=== PATIENT | female | born 1940 | race Caucasian/White ===

== ENCOUNTER 2019-02-13 20:06 | Inpatient (IN) | payer MEDICARE, BC ==
[~2019-02-13] VITALS: Ht 152.4 cm; Wt 43.0 kg
[2019-02-13] MEDS ORDERED: SOD CHLORIDE 0.9% 500 ML IV STA (22:32)
[2019-02-14] VITALS (8 sets, daily range): BP systolic 121–181; BP diastolic 58–95; PULSE 97–118; RESP 17–20; Ht 152.4 cm; Wt 43.0 kg
--- NOTE | 2019-02-14 00:57 | ERD ---
ER Documentation Chief Complaint Chief Complaint weakness, poor appetite, anxiety. lives alone at home. >20lbs weight loss HPI This is a very pleasant 78-year-old female comes in with complaints of generalized weakness, poor appetite and anxiety. Apparently over the past few days she has not been eating or drinking well. Daughter is at the bedside stated the patient has been generally weak. Patient himself denies fevers chills nausea vomiting or any recent travel. No sick contacts. Denies suicidal homicidal ideation. Denies auditory or visual hallucinations. ROS All systems reviewed and are negative except as per history of present illness. Allergies Allergies: Coded Allergies: No Known Drug Allergy (Verified Allergy, Unknown, 02/13/19) PMhx/Soc Medical and Surgical Hx: pt denies Surgical Hx Hx Psychiatric Problems: Yes (ANXIETY) Hx Miscellaneous Medical Probl: Yes (DYSPHAGIA ) Hx Alcohol Use: No Hx Substance Use: No Hx Tobacco Use: No Smoking Status: Never smoker Physical Exam Vitals Vital Signs Date Temp Pulse Resp B/P (MAP) Pulse Ox O2 O2 Flow FiO2 Time Delivery Rate 02/13/19 92 23 153/86 96 Room Air 23:56 (108) 02/13/19 98.4 104 20 146/78 95 20:09 (100) Physical Exam Const: No acute distress Head: Atraumatic Eyes: Normal Conjunctiva ENT: Normal External Ears, Nose and Mouth. Neck: Full range of motion. No meningismus. Resp: Clear to auscultation bilaterally Cardio: Regular rate and rhythm, no murmurs Abd: Soft, non tender, non distended. Normal bowel sounds Skin: No petechiae or rashes Back: No midline or flank tenderness Ext: No cyanosis, or edema Neur: Awake and alert Psych: Normal Mood and Affect Result Diagram: 02/13/19211902/13/192119 Results 24 hrs Laboratory Tests Test 02/13/19 21:20 White Blood Count 6.6 10^3/ul Red Blood Count 4.73 10^6/ul Hemoglobin 15.5 g/dl Hematocrit 45.8 % Mean Corpuscular Volume 96.8 fl Mean Corpuscular Hemoglobin 32.8 pg Mean Corpuscular Hemoglobin Concent 33.8 g/dl Red Cell Distribution Width 14.0 % Platelet Count 177 10^3/UL Mean Platelet Volume 10.3 fl Immature Granulocytes % 0.300 % Neutrophils % 78.2 % Lymphocytes % 14.5 % Monocytes % 6.5 % Eosinophils % 0.2 % Basophils % 0.3 % Nucleated Red Blood Cells % 0.0 /100WBC Immature Granulocytes # 0.020 10^3/ul Neutrophils # 5.2 10^3/ul Lymphocytes # 1.0 10^3/ul Monocytes # 0.4 10^3/ul Eosinophils # 0.0 10^3/ul Basophils # 0.0 10^3/ul Nucleated Red Blood Cells # 0.0 10^3/ul Sodium Level 149 mmol/L Potassium Level 3.5 mmol/L Chloride Level 104 mmol/L Carbon Dioxide Level 35 mmol/L Anion Gap 10 Blood Urea Nitrogen 28 mg/dl Creatinine 0.32 mg/dl Est Glomerular Filtrat Rate mL/min mL/min Glucose Level 109 mg/dl Calcium Level 10.6 mg/dl Total Bilirubin 1.2 mg/dl Direct Bilirubin 0.00 mg/dl Indirect Bilirubin 1.2 mg/dl Aspartate Amino Transf (AST/SGOT) 51 IU/L Alanine Aminotransferase (ALT/SGPT) 46 IU/L Alkaline Phosphatase 56 IU/L Troponin I 0.015 ng/ml Total Protein 7.9 g/dl Albumin 4.4 g/dl Globulin 3.50 g/dl Albumin/Globulin Ratio 1.25 Lipase 108 U/L Current Medications Medications Dose Sig/Maribell Start Time Status Last (Trade) Ordered Route PRN Stop Time Admin Dose Reason Admin Sodium 500 ml @ Q1H STAT 02/13/19 DC 02/13/19 Chloride 500 mls/hr IV 22:32 02/13/19 22:41 23:31 Procedures/MDM Emergency department course: Patient seen and evaluated by triage nurse. Placed on continuous cardiac monitoring. Had blood work done. Was given a normal saline fluid bolus. Diagnostic data: EKG: Rate/Rhythm: [Normal Sinus Rhythm] QRS, ST, T-waves: [No changes consistent w/ acute ischemia], normal axis, normal intervals, upgoing T waves Impression: [No evidence of ischemia or arrhythmia] Chest X-ray 1V Interpreted by me: Soft Tissue: No acute abnormalities Bones: No acute abnormalities Mediastinum/Cardiac Silhouette/Lungs: [No acute abnormalities] Medical decision makin-year female generalized weakness, obvious evidence of acute dehydration both on physical exam and laboratory data, and general peter lure to thrive. Patient will be admitted to the hospitalist for further evaluation and management fluid hydration. Hospitalist made aware at 11:30 PM Departure Diagnosis: Primary Impression: Acute dehydration Additional Impressions: Acute hypernatremia Failure to thrive Failure to thrive age range: in adult Qualified Codes: R62.7 - Adult failure to thrive Condition: Serious LUIS MORENO Feb 14, 2019 00:57
[2019-02-14] MEDS ORDERED: NACL 0.9% 3 ML SYG IV SCH (01:00)
[2019-02-14] MEDS ORDERED: ONDANSETRON 4 MG INJ IV PRN (01:00)
[2019-02-14] MEDS ORDERED: HYDR-4011 PO (01:01)
[2019-02-14] MEDS ORDERED: MET25 PO (01:01)
[2019-02-14] MEDS ORDERED: HYDR-3029 PO (01:01)
[2019-02-14] MEDS ORDERED: ALPR0.254 PO (01:01)
[2019-02-14] MEDS: DEXTROSE 5%-0.45% NACL 1,000 ML IV SCH ×2 (03:38→10:53)
[2019-02-14] MEDS ORDERED: LORAZEPAM 2 MG INJ IV ONE (05:00)
--- NOTE | 2019-02-14 08:32 | HP ---
Date/Time of Note Date/Time of Note DATE: 02/14/19 TIME: 08:29 Assessment/Plan VTE Prophylaxis Pharmacological prophylaxis: heparin Lines/Catheters IV Catheter Type (from Nrs): Saline Lock Assessment/Plan Assessment/Plan 1. Dysphagia -Reportedly, she is supposed to have a GI later on this week -Speech/swallow evaluation -Inpatient GI consult 2. Generalized weakness: Likely secondary to poor nutrition 3. Anxiety: We will provide meds as needed 4. Failure to thrive, secondary to dysphagia. See #1 -Dietary consult -Speech/swallow eval Result Diagram: 02/14/19 0455 02/14/19 0455 Results 24hrs Laboratory Tests Test 02/13/19 21:20 02/14/19 04:55 White Blood Count 6.6 5.8 Red Blood Count 4.73 4.44 Hemoglobin 15.5 14.7 Hematocrit 45.8 43.3 Mean Corpuscular Volume 96.8 97.5 Mean Corpuscular Hemoglobin 32.8 33.1 H Mean Corpuscular Hemoglobin Concent 33.8 33.9 Red Cell Distribution Width 14.0 13.8 Platelet Count 177 154 Mean Platelet Volume 10.3 10.9 H Immature Granulocytes % 0.300 0.300 Neutrophils % 78.2 H 77.8 H Lymphocytes % 14.5 L 15.7 Monocytes % 6.5 5.9 Eosinophils % 0.2 0.0 Basophils % 0.3 0.3 Nucleated Red Blood Cells % 0.0 0.0 Immature Granulocytes # 0.020 0.020 Neutrophils # 5.2 4.5 Lymphocytes # 1.0 0.9 Monocytes # 0.4 0.3 Eosinophils # 0.0 0.0 Basophils # 0.0 0.0 Nucleated Red Blood Cells # 0.0 0.0 Sodium Level 149 H 148 H Potassium Level 3.5 3.4 L Chloride Level 104 107 Carbon Dioxide Level 35 H 34 H Anion Gap 10 7 Blood Urea Nitrogen 28 H 26 H Creatinine 0.32 L 0.28 L Est Glomerular Filtrat Rate mL/min Glucose Level 109 135 Calcium Level 10.6 H 9.9 Total Bilirubin 1.2 1.0 Direct Bilirubin 0.00 0.00 Indirect Bilirubin 1.2 H 1.0 Aspartate Amino Transf (AST/SGOT) 51 H 46 Alanine Aminotransferase (ALT/SGPT) 46 43 Alkaline Phosphatase 56 48 Troponin I 0.015 Total Protein 7.9 7.0 Albumin 4.4 3.9 Globulin 3.50 H 3.10 Albumin/Globulin Ratio 1.25 1.25 Lipase 108 Hemoglobin A1c 4.7 Phosphorus Level 3.3 Magnesium Level 2.2 Triglycerides Level 62 Cholesterol Level 135 LDL Cholesterol, Calculated 75 HDL Cholesterol 48 Cholesterol/HDL Ratio 2.8 Thyroid Stimulating Hormone (TSH) 1.600 HPI/ROS Admit Date/Time Admit Date/Time Feb 13, 2019 at 23:02 Hx of Present Illness This is a 78-year-old female with a history of anxiety and dysphagia who was brought to the ER because of generalized weakness, anxiety and continued dysphagia. Patient currently not able to provide history, in deep sleep with mouth open. She appears cachectic. Reportedly, patient is supposed to see a material analyst for NG tube placement later on this week. She has become anxious especially every time when she tries to eat. Because of this, she has been eating less. PMH/Family/Social Past Medical History Medical History: other (see hpi) Coded Allergies: azithromycin (Verified Allergy, Unknown, STOMACH UPSET, VITTING, 02/13/19) Past Surgical History Past Surgical Hx: other (see hpi) Family History Significant Family History: no pertinent family hx Social History Alcohol Use: other Smoking Status: Never smoker Drug Use: none Exam Constitutional: other (no acute distress) Head: normocephalic Neck: supple Respiratory: normal air movement Cardiovascular: regular rate and rhythm Gastrointestinal: soft Medications Current Medications Dextrose/Sodium Chloride 1,000 ml @ 100 mls/hr Q10H IV Last administered on 02/14/19at 03:38; Admin Dose 100 MLS/HR; Start 02/14/19 at 00:53 IV Flush (NS 3 ml) 3 ml PER PROTOCOL IV ; Start 02/14/19 at 01:00 Ondansetron HCl (Zofran Inj) 4 mg Q6H PRN IV NAUSEA/VOMITING; Start 02/14/19 at 01:00 Morphine Sulfate (morphine) 2 mg Q4H PRN IV .SEVERE PAIN 7-10; Start 02/14/19 at 01:00 Famotidine (Pepcid Iv) 20 mg Q12 IV ; Start 02/14/19 at 09:00 Heparin Sodium (Porcine) (Heparin (5000 Units/1ml)) 5,000 unit Q12 SC ; Start 02/14/19 at 09:00 Albuterol/ Ipratropium (Duoneb) 3 ml Q2H RESP THERAPY PRN HHN SHORTNESS OF BREATH; Start 02/14/19 at 01:00 Coded Allergies: No Known Drug Allergy (Verified Allergy, Unknown, 02/13/19) Social History Smoking Status: Never smoker Exam/Review of Systems Vital Signs Vitals Vital Signs Date Temp Pulse Resp B/P (MAP) Pulse Ox O2 O2 Flow FiO2 Time Delivery Rate 02/14/19 98.7 98 18 181/89 97 08:06 (119) 02/14/19 Room Air 01:41 Intake and Output 02/13/19 02/13/19 02/14/19 1414:59 22:59 06:59 IntakeIntake Total 300 ml BalanceBalance 300 ml LUIS PEREZ MD Feb 14, 2019 08:32
[2019-02-14] MEDS: FAMOTIDINE 20 MG INJ IV SCH ×2 (09:49→20:23)
[2019-02-14] MEDS: HEPARIN 5,000 UNIT/1 ML VIAL SC SCH ×2 (09:52→20:34)
[2019-02-14] MEDS: hydrALAzine 20 MG INJ IV PRN ×2 (10:47→20:24)
--- NOTE | 2019-02-14 11:14 | PN ---
Date/Time of Note Date/Time of Note DATE: 02/14/19 TIME: 11:12 Assessment/Plan VTE Prophylaxis Pharmacological prophylaxis: heparin Lines/Catheters IV Catheter Type (from Nrsg): Saline Lock Assessment/Plan Assessment/Plan 1. Dysphagia, unclear etiology, CT neck, swallow eval 2. Anxiety, ativan prn 3. Malnutrition due to poor intake, consider G-tube 4. Hypokalemia, KCL 5. DVT prophylaxis: heparin sq Result Diagram: 02/14/19 0455 02/14/19 0455 Results 24hrs Laboratory Tests Test 02/13/19 21:20 02/14/19 04:55 White Blood Count 6.6 5.8 Red Blood Count 4.73 4.44 Hemoglobin 15.5 14.7 Hematocrit 45.8 43.3 Mean Corpuscular Volume 96.8 97.5 Mean Corpuscular Hemoglobin 32.8 33.1 H Mean Corpuscular Hemoglobin Concent 33.8 33.9 Red Cell Distribution Width 14.0 13.8 Platelet Count 177 154 Mean Platelet Volume 10.3 10.9 H Immature Granulocytes % 0.300 0.300 Neutrophils % 78.2 H 77.8 H Lymphocytes % 14.5 L 15.7 Monocytes % 6.5 5.9 Eosinophils % 0.2 0.0 Basophils % 0.3 0.3 Nucleated Red Blood Cells % 0.0 0.0 Immature Granulocytes # 0.020 0.020 Neutrophils # 5.2 4.5 Lymphocytes # 1.0 0.9 Monocytes # 0.4 0.3 Eosinophils # 0.0 0.0 Basophils # 0.0 0.0 Nucleated Red Blood Cells # 0.0 0.0 Sodium Level 149 H 148 H Potassium Level 3.5 3.4 L Chloride Level 104 107 Carbon Dioxide Level 35 H 34 H Anion Gap 10 7 Blood Urea Nitrogen 28 H 26 H Creatinine 0.32 L 0.28 L Est Glomerular Filtrat Rate mL/min Glucose Level 109 135 Calcium Level 10.6 H 9.9 Total Bilirubin 1.2 1.0 Direct Bilirubin 0.00 0.00 Indirect Bilirubin 1.2 H 1.0 Aspartate Amino Transf (AST/SGOT) 51 H 46 Alanine Aminotransferase (ALT/SGPT) 46 43 Alkaline Phosphatase 56 48 Troponin I 0.015 Total Protein 7.9 7.0 Albumin 4.4 3.9 Globulin 3.50 H 3.10 Albumin/Globulin Ratio 1.25 1.25 Lipase 108 Hemoglobin A1c 4.7 Phosphorus Level 3.3 Magnesium Level 2.2 Triglycerides Level 62 Cholesterol Level 135 LDL Cholesterol, Calculated 75 HDL Cholesterol 48 Cholesterol/HDL Ratio 2.8 Thyroid Stimulating Hormone (TSH) 1.600 Subjective 24 Hr Interval Summary Free Text/Dictation weak, unable to swallow on throat Exam/Review of Systems Exam Vitals Vital Signs Date Temp Pulse Resp B/P (MAP) Pulse Ox O2 O2 Flow FiO2 Time Delivery Rate 02/14/19 98.2 102 175/95 10:47 (121) 02/14/19 18 97 08:06 02/14/19 Room Air 01:41 Intake and Output 02/13/19 02/13/19 02/14/19 1515:00 23:00 07:00 IntakeIntake Total 300 ml BalanceBalance 300 ml Constitutional: alert, oriented, well developed, frail Head: normocephalic, atraumatic Eyes: nl conjunctiva, EOMI, nl lids, PERRL ENMT: nl external ears & nose, nl lips & teeth, nl nasal mucosa & septum Neck: supple, non-tender Respiratory: clear to auscultation, normal air movement; No congested cough, No crackles/rales, No diminished breath sounds, No intercostal retraction, No labored breathing, No respirations, No tactile fremitus, No wheezing, No other Cardiovascular: regular rate and rhythm, nl pulses; No bruits, No diastolic murmur, No edema, No gallop, No irregular rhythm, No jugular venous distention (JVD), No murmurs/extra sounds, No rub, No systolic murmur, No S3, No S4, No other Gastrointestinal: soft, nl liver, spleen, non-tender Musculoskeletal: nl extremities to inspection Extremities: normal pulses; No calf tenderness, No cyanosis, No clubbing, No edema, No pitting pedal edema, No palpable cord, No tenderness, No other 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: CHICKEN BONER II-XII intact, nl mental status, nl speech Results Results 24hrs Laboratory Tests Test 02/13/19 21:20 02/14/19 04:55 White Blood Count 6.6 5.8 Red Blood Count 4.73 4.44 Hemoglobin 15.5 14.7 Hematocrit 45.8 43.3 Mean Corpuscular Volume 96.8 97.5 Mean Corpuscular Hemoglobin 32.8 33.1 H Mean Corpuscular Hemoglobin Concent 33.8 33.9 Red Cell Distribution Width 14.0 13.8 Platelet Count 177 154 Mean Platelet Volume 10.3 10.9 H Immature Granulocytes % 0.300 0.300 Neutrophils % 78.2 H 77.8 H Lymphocytes % 14.5 L 15.7 Monocytes % 6.5 5.9 Eosinophils % 0.2 0.0 Basophils % 0.3 0.3 Nucleated Red Blood Cells % 0.0 0.0 Immature Granulocytes # 0.020 0.020 Neutrophils # 5.2 4.5 Lymphocytes # 1.0 0.9 Monocytes # 0.4 0.3 Eosinophils # 0.0 0.0 Basophils # 0.0 0.0 Nucleated Red Blood Cells # 0.0 0.0 Sodium Level 149 H 148 H Potassium Level 3.5 3.4 L Chloride Level 104 107 Carbon Dioxide Level 35 H 34 H Anion Gap 10 7 Blood Urea Nitrogen 28 H 26 H Creatinine 0.32 L 0.28 L Est Glomerular Filtrat Rate mL/min Glucose Level 109 135 Calcium Level 10.6 H 9.9 Total Bilirubin 1.2 1.0 Direct Bilirubin 0.00 0.00 Indirect Bilirubin 1.2 H 1.0 Aspartate Amino Transf (AST/SGOT) 51 H 46 Alanine Aminotransferase (ALT/SGPT) 46 43 Alkaline Phosphatase 56 48 Troponin I 0.015 Total Protein 7.9 7.0 Albumin 4.4 3.9 Globulin 3.50 H 3.10 Albumin/Globulin Ratio 1.25 1.25 Lipase 108 Hemoglobin A1c 4.7 Phosphorus Level 3.3 Magnesium Level 2.2 Triglycerides Level 62 Cholesterol Level 135 LDL Cholesterol, Calculated 75 HDL Cholesterol 48 Cholesterol/HDL Ratio 2.8 Thyroid Stimulating Hormone (TSH) 1.600 Medications Medication Current Medications Dextrose/Sodium Chloride 1,000 ml @ 100 mls/hr Q10H IV Last administered on 02/14/19at 03:38; Admin Dose 100 MLS/HR; Start 02/14/19 at 00:53 IV Flush (NS 3 ml) 3 ml PER PROTOCOL IV ; Start 02/14/19 at 01:00 Ondansetron HCl (Zofran Inj) 4 mg Q6H PRN IV NAUSEA/VOMITING; Start 02/14/19 at 01:00 Morphine Sulfate (morphine) 2 mg Q4H PRN IV .SEVERE PAIN 7-10; Start 02/14/19 at 01:00 Famotidine (Pepcid Iv) 20 mg Q12 IV Last administered on 02/14/19at 09:49; Admin Dose 20 MG; Start 02/14/19 at 09:00 Heparin Sodium (Porcine) (Heparin (5000 Units/1ml)) 5,000 unit Q12 SC Last administered on 02/14/19at 09:52; Admin Dose 5,000 UNIT; Start 02/14/19 at 09:00 Albuterol/ Ipratropium (Duoneb) 3 ml Q2H RESP THERAPY PRN HHN SHORTNESS OF BREATH; Start 02/14/19 at 01:00 Hydralazine HCl (Apresoline) 10 mg Q6H PRN IV BP >160 Last administered on 02/14/19at 10:47; Admin Dose 10 MG; Start 02/14/19 at 10:30 Lorazepam (Ativan) 1 mg Q6H PRN IV ANXIETY; Start 02/14/19 at 10:30 JAKE MCDERMOTT MD Feb 14, 2019 11:14
[2019-02-14] MEDS: D5W-0.45 NACL + KCL 20 MEQ 1,000 ML IV SCH ×2 (12:06→21:30)
[2019-02-14] MEDS ORDERED: POTASSIUM CHLORIDE 100 ML IVPB ONE (12:30)
[2019-02-14] MEDS ORDERED: IOHEXOL 300MG/ML 150 ML BTL ONE (12:43)
[2019-02-14] MEDS ORDERED: SOD CHLORIDE 0.9% 100 ML ONE (12:43)
--- NOTE | 2019-02-14 15:05 | CONS ---
Assessment/Plan Assessment/Plan Hospital Course (Demo Recall) Summary Assessment and Plan: Assessment: Dysphagia Anxiety Hypokalemia Hx of RA was on Remicade Questionable of cardiac history -She states she has "to clogged cardiac artery"?? Plan: Cardiac clearance Swallow eval pending CT neck- pending Plan for EGD/PEG after cardiac clearance has been obtained Endoscopy - risks/benefits/alternatives/indications of procedure and sedation/anesthesia discussed with patient who states understanding and gives informed consent to proceed. Patient seen in collaboration with Dr. Mendoza CC: MANDA MENDOZA MD ; Consultation Date/Type/Reason Admit Date/Time Feb 13, 2019 at 23:02 Date of Consultation: Feb 14, 2019 Type of Consult GI Reason for Consultation Dysphagia Date/Time of Note DATE: 02/14/19 TIME: 14:37 Hx of Present Illness This is a 78 year old female with PMH of RA and OA was on Remicade and subsequently developed fungal infection at 3-6 months ago since then patient started complaining of trouble swallowing she is status post treatment but continued to have concerns about swallowing was she was evaluated by her PCP was started on anxiety medication with minimal to no help patient was also evaluated by GI with plan for EGD/PEG placement this coming Wednesday. Past year patient has been evaluated speech therapy she attempted to have a video swallow but was too weak to follow directions and therefore test was aborted. She is lost about 50 pounds over the past year. GI has been consulted for further evaluation regarding dysphagia. After talking the patient and family it was decided to move forward with EGD and PEG as we continue workup regarding dysphasia however during conversation patient noted that she was told she has "to clogged arteries"could not be confirmed by daughters the double checked with caregiver who stated patient did go see a review specialist was placed on medication but patient did not take medication secondary to fear of swallowing one daughter b elieves that she was to have an MRI but patient refused unclear why patient needed MRI. After speaking with Dr. SALGADO it was agreed that patient would require cardiac clearance prior to endoscopic intervention. Dr. Rodriguez made aware. Review of Systems: A 12 system, review was conducted and is negative except as noted in the HPI or here. Past Medical History Home Meds Reported Medications Methotrexate* (Methotrexate*) 2.5 Mg Tab, 7.5 MG PO MONTHLY, TAB 02/14/19 Alprazolam* (Alprazolam*) 0.25 Mg Tablet, 0.25 MG PO TID PRN for ANXIETY, TAB 02/14/19 Hydroxyzine Hcl* (Hydroxyzine Hcl*) 10 Mg Tablet, 10 MG PO Q6H PRN for ITCHING, #30 TAB 02/14/19 Hydrocodone/Acetaminophen (Kipling 5-325 Tablet) 1 Each Tablet, 1 EACH PO Q6H PRN for PAIN LEVEL 6-10, TAB 02/14/19 Medications Current Medications IV Flush (NS 3 ml) 3 ml PER PROTOCOL IV ; Start 02/14/19 at 01:00 Ondansetron HCl (Zofran Inj) 4 mg Q6H PRN IV NAUSEA/VOMITING; Start 02/14/19 at 01:00 Morphine Sulfate (morphine) 2 mg Q4H PRN IV .SEVERE PAIN 7-10; Start 02/14/19 at 01:00 Famotidine (Pepcid Iv) 20 mg Q12 IV Last administered on 02/14/19at 09:49; Admin Dose 20 MG; Start 02/14/19 at 09:00 Heparin Sodium (Porcine) (Heparin (5000 Units/1ml)) 5,000 unit Q12 SC Last administered on 02/14/19at 09:52; Admin Dose 5,000 UNIT; Start 02/14/19 at 09:00 Albuterol/ Ipratropium (Duoneb) 3 ml Q2H RESP THERAPY PRN HHN SHORTNESS OF BREATH; Start 02/14/19 at 01:00 Hydralazine HCl (Apresoline) 10 mg Q6H PRN IV BP >160 Last administered on 02/14/19at 10:47; Admin Dose 10 MG; Start 02/14/19 at 10:30 Lorazepam (Ativan) 1 mg Q6H PRN IV ANXIETY; Start 02/14/19 at 10:30 Potassium Chloride/Dextrose/ Sod Cl 1,000 ml @ 100 mls/hr Q10H IV Last administered on 02/14/19at 12:06; Admin Dose 100 MLS/HR; Start 02/14/19 at 11:30 Allergies: Coded Allergies: No Known Drug Allergy (Verified Allergy, Unknown, 02/13/19) Social History Smoking Status: Never smoker Exam/Review of Systems Exam Vitals Vital Signs Date Temp Pulse Resp B/P (MAP) Pulse Ox O2 O2 Flow FiO2 Time Delivery Rate 02/14/19 97.5 106 20 145/68 95 14:03 (93) 02/14/19 Room Air 01:41 Intake and Output 02/13/19 02/13/19 02/14/19 1515:00 23:00 07:00 IntakeIntake Total 300 ml BalanceBalance 300 ml Exam PHYSICAL EXAMINATION: GENERAL: Cachectic, alert & oriented x 3, SKIN: No lesions EYES: Pupils equal reactive to light, no discharge. EARS/NOSE AND THROAT: Ears normal, nose normal, mouth NECK: Supple, no masses CHEST: Inspection within normal limits. CARDIOVASCULAR: Heart: Regular rate and rhythm RESPIRATORY: Lungs clear to auscultation GASTROINTESTINAL AND LIVER: Abdomen: Soft, sunken abd, non tenderness, non- distended, no hernias, no masses, no organomegaly, no ascites, no guarding, no rebound tenderness, normoactive bowel sounds. Rectal: Deferred. EXTREMITIES: No cyanosis, clubbing or edema. Results Result Diagram: 02/14/19 0455 02/14/19 0455 Results 24hrs Laboratory Tests Test 02/13/19 21:20 02/14/19 04:55 White Blood Count 6.6 5.8 Red Blood Count 4.73 4.44 Hemoglobin 15.5 14.7 Hematocrit 45.8 43.3 Mean Corpuscular Volume 96.8 97.5 Mean Corpuscular Hemoglobin 32.8 33.1 H Mean Corpuscular Hemoglobin Concent 33.8 33.9 Red Cell Distribution Width 14.0 13.8 Platelet Count 177 154 Mean Platelet Volume 10.3 10.9 H Immature Granulocytes % 0.300 0.300 Neutrophils % 78.2 H 77.8 H Lymphocytes % 14.5 L 15.7 Monocytes % 6.5 5.9 Eosinophils % 0.2 0.0 Basophils % 0.3 0.3 Nucleated Red Blood Cells % 0.0 0.0 Immature Granulocytes # 0.020 0.020 Neutrophils # 5.2 4.5 Lymphocytes # 1.0 0.9 Monocytes # 0.4 0.3 Eosinophils # 0.0 0.0 Basophils # 0.0 0.0 Nucleated Red Blood Cells # 0.0 0.0 Sodium Level 149 H 148 H Potassium Level 3.5 3.4 L Chloride Level 104 107 Carbon Dioxide Level 35 H 34 H Anion Gap 10 7 Blood Urea Nitrogen 28 H 26 H Creatinine 0.32 L 0.28 L Est Glomerular Filtrat Rate mL/min Glucose Level 109 135 Calcium Level 10.6 H 9.9 Total Bilirubin 1.2 1.0 Direct Bilirubin 0.00 0.00 Indirect Bilirubin 1.2 H 1.0 Aspartate Amino Transf (AST/SGOT) 51 H 46 Alanine Aminotransferase (ALT/SGPT) 46 43 Alkaline Phosphatase 56 48 Troponin I 0.015 Total Protein 7.9 7.0 Albumin 4.4 3.9 Globulin 3.50 H 3.10 Albumin/Globulin Ratio 1.25 1.25 Lipase 108 Hemoglobin A1c 4.7 Phosphorus Level 3.3 Magnesium Level 2.2 Triglycerides Level 62 Cholesterol Level 135 LDL Cholesterol, Calculated 75 HDL Cholesterol 48 Cholesterol/HDL Ratio 2.8 Thyroid Stimulating Hormone (TSH) 1.600 Medications Medication Current Medications IV Flush (NS 3 ml) 3 ml PER PROTOCOL IV ; Start 02/14/19 at 01:00 Ondansetron HCl (Zofran Inj) 4 mg Q6H PRN IV NAUSEA/VOMITING; Start 02/14/19 at 01:00 Morphine Sulfate (morphine) 2 mg Q4H PRN IV .SEVERE PAIN 7-10; Start 02/14/19 at 01:00 Famotidine (Pepcid Iv) 20 mg Q12 IV Last administered on 02/14/19at 09:49; Admin Dose 20 MG; Start 02/14/19 at 09:00 Heparin Sodium (Porcine) (Heparin (5000 Units/1ml)) 5,000 unit Q12 SC Last administered on 02/14/19at 09:52; Admin Dose 5,000 UNIT; Start 02/14/19 at 09:00 Albuterol/ Ipratropium (Duoneb) 3 ml Q2H RESP THERAPY PRN HHN SHORTNESS OF BREATH; Start 02/14/19 at 01:00 Hydralazine HCl (Apresoline) 10 mg Q6H PRN IV BP >160 Last administered on 02/14/19at 10:47; Admin Dose 10 MG; Start 02/14/19 at 10:30 Lorazepam (Ativan) 1 mg Q6H PRN IV ANXIETY; Start 02/14/19 at 10:30 Potassium Chloride/Dextrose/ Sod Cl 1,000 ml @ 100 mls/hr Q10H IV Last administered on 02/14/19at 12:06; Admin Dose 100 MLS/HR; Start 02/14/19 at 11:30 NIRMAL LATIF Feb 14, 2019 14:48
[2019-02-14] MEDS: LORAZEPAM 2 MG INJ IV PRN (20:25)
[2019-02-14] MEDS ORDERED: SUMATRIPTAN 6 MG/0.5 ML INJ SC ONE (21:30)
[2019-02-15] VITALS (9 sets, daily range): BP systolic 123–184; BP diastolic 59–85; PULSE 90–110; RESP 18
[2019-02-15] MEDS: D5W-0.45 NACL + KCL 20 MEQ 1,000 ML IV SCH ×2 (05:48→17:52)
[2019-02-15] MEDS: LORAZEPAM 2 MG INJ IV PRN ×2 (05:49→17:51)
[2019-02-15] MEDS: hydrALAzine 20 MG INJ IV PRN ×2 (08:29→15:54)
[2019-02-15] MEDS: FAMOTIDINE 20 MG INJ IV SCH ×2 (08:33→20:41)
[2019-02-15] MEDS: HEPARIN 5,000 UNIT/1 ML VIAL SC SCH ×2 (08:39→20:43)
--- NOTE | 2019-02-15 11:55 | PN ---
Date/Time of Note Date/Time of Note DATE: 02/15/19 TIME: 11:53 Assessment/Plan VTE Prophylaxis Risk score (from Ns)>0 risk: 4 SCD applied (from Ns): Yes Pharmacological prophylaxis: heparin Lines/Catheters IV [facility] (from [facility]): Peripheral IV Assessment/Plan Assessment/Plan 1. Dysphagia, unclear etiology, CT neck, swallow eval 2. 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 Brown 3. Bilateral thyroid nodules measures up to 2 cm in the left thyroid lobe, ENT consult Dr. Bray 4. Anxiety, ativan prn 5. Malnutrition due to poor intake, consider G-tube 6. Hypokalemia, KCL 7. DVT prophylaxis: heparin sq Result Diagram: 02/15/19 0446 02/15/19 0446 Results 24hrs Laboratory Tests Test 02/15/19 04:46 White Blood Count 9.6 # Red Blood Count 4.64 Hemoglobin 15.3 Hematocrit 45.4 Mean Corpuscular Volume 97.8 Mean Corpuscular Hemoglobin 33.0 Mean Corpuscular Hemoglobin Concent 33.7 Red Cell Distribution Width 14.6 H Platelet Count 165 Mean Platelet Volume 10.7 H Immature Granulocytes % 0.400 Neutrophils % 82.8 H Lymphocytes % 9.6 L Monocytes % 6.8 Eosinophils % 0.1 Basophils % 0.3 Nucleated Red Blood Cells % 0.0 Immature Granulocytes # 0.040 H Neutrophils # 7.9 H Lymphocytes # 0.9 Monocytes # 0.7 Eosinophils # 0.0 Basophils # 0.0 Nucleated Red Blood Cells # 0.0 Sodium Level 144 Potassium Level 3.7 Chloride Level 107 Carbon Dioxide Level 33 H Anion Gap 4 L Blood Urea Nitrogen 13 # Creatinine 0.21 L Est Glomerular Filtrat Rate mL/min Glucose Level 103 Calcium Level 10.1 Phosphorus Level 2.3 #L Magnesium Level 2.0 Subjective 24 Hr Interval Summary Free Text/Dictation no event Exam/Review of Systems Exam Vitals Vital Signs Date Temp Pulse Resp B/P (MAP) Pulse Ox O2 O2 Flow FiO2 Time Delivery Rate 02/15/19 123/59 09:12 (80) 02/15/19 97.6 94 18 94 07:54 02/15/19 Room Air 06:46 Intake and Output 02/14/19 02/14/19 02/15/19 1515:00 23:00 07:00 IntakeIntake Total 600 ml 400 ml 800 ml OutputOutput Total 200 ml 550 ml BalanceBalance 400 ml -150 ml 800 ml Constitutional: alert, frail Head: normocephalic, atraumatic Eyes: nl conjunctiva, EOMI, nl lids ENMT: nl external ears & nose, nl lips & teeth, nl nasal mucosa & septum Respiratory: clear to auscultation, normal air movement; No congested cough, No crackles/rales, No diminished breath sounds, No intercostal retraction, No labored breathing, No respirations, No tactile fremitus, No wheezing, No other Cardiovascular: regular rate and rhythm, nl pulses; No bruits, No diastolic murmur, No edema, No gallop, No irregular rhythm, No jugular venous distention (JVD), No murmurs/extra sounds, No rub, No systolic murmur, No S3, No S4, No other Gastrointestinal: soft, nl liver, spleen, non-tender Musculoskeletal: nl extremities to inspection Extremities: normal pulses; No calf tenderness, No cyanosis, No clubbing, No edema, No pitting pedal edema, No palpable cord, No tenderness, No other 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: 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, nl mental status, nl speech Results Results 24hrs Laboratory Tests Test 02/15/19 04:46 White Blood Count 9.6 # Red Blood Count 4.64 Hemoglobin 15.3 Hematocrit 45.4 Mean Corpuscular Volume 97.8 Mean Corpuscular Hemoglobin 33.0 Mean Corpuscular Hemoglobin Concent 33.7 Red Cell Distribution Width 14.6 H Platelet Count 165 Mean Platelet Volume 10.7 H Immature Granulocytes % 0.400 Neutrophils % 82.8 H Lymphocytes % 9.6 L Monocytes % 6.8 Eosinophils % 0.1 Basophils % 0.3 Nucleated Red Blood Cells % 0.0 Immature Granulocytes # 0.040 H Neutrophils # 7.9 H Lymphocytes # 0.9 Monocytes # 0.7 Eosinophils # 0.0 Basophils # 0.0 Nucleated Red Blood Cells # 0.0 Sodium Level 144 Potassium Level 3.7 Chloride Level 107 Carbon Dioxide Level 33 H Anion Gap 4 L Blood Urea Nitrogen 13 # Creatinine 0.21 L Est Glomerular Filtrat Rate mL/min Glucose Level 103 Calcium Level 10.1 Phosphorus Level 2.3 #L Magnesium Level 2.0 Medications Medication Current Medications IV Flush (NS 3 ml) 3 ml PER PROTOCOL IV ; Start 02/14/19 at 01:00 Ondansetron HCl (Zofran Inj) 4 mg Q6H PRN IV NAUSEA/VOMITING; Start 02/14/19 at 01:00 Morphine Sulfate (morphine) 2 mg Q4H PRN IV .SEVERE PAIN 7-10; Start 02/14/19 at 01:00 Famotidine (Pepcid Iv) 20 mg Q12 IV Last administered on 02/15/19 08:33; Admin Dose 20 MG; Start 02/14/19 at 09:00 Heparin Sodium (Porcine) (Heparin (5000 Units/1ml)) 5,000 unit Q12 SC Last administered on 02/15/19 08:39; Admin Dose 5,000 UNIT; Start 02/14/19 at 09:00 Albuterol/ Ipratropium (Duoneb) 3 ml Q2H RESP THERAPY PRN HHN SHORTNESS OF BREATH; Start 02/14/19 at 01:00 Hydralazine HCl (Apresoline) 10 mg Q6H PRN IV BP >160 Last administered on 08:29; Admin Dose 10 MG; Start 02/14/19 at 10:30 Lorazepam (Ativan) 1 mg Q6H PRN IV ANXIETY Last administered on 02/15/19 05:49; Admin Dose 1 MG; Start 02/14/19 at 10:30 Potassium Chloride/Dextrose/ Sod Cl 1,000 ml @ 100 mls/hr Q10H IV Last administered on 02/15/19 05:48; Admin Dose 100 MLS/HR; Start 02/14/19 at 11:30 JAKE MCDERMOTT MD Feb 15, 2019 11:55
--- NOTE | 2019-02-15 14:29 | PN ---
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 Mendoza Subjective: Course reviewed with nursing staff Patient interviewed and examined All labs, imaging and other results reviewed The patient resting in bed, no change in status No over night events, Pt is NPO except ice chips however not ivone ice chips will Continue close observation. PHYSICAL EXAMINATION: GENERAL: Cachectic, alert & oriented x 3, SKIN: No lesions EYES: Pupils equal reactive to light, no discharge. EARS/NOSE AND THROAT: Ears normal, nose normal, mouth NECK: Supple, no masses CHEST: Inspection within normal limits. CARDIOVASCULAR: Heart: Regular rate and rhythm RESPIRATORY: Lungs clear to auscultation GASTROINTESTINAL AND LIVER: Abdomen: Soft, sunken abd, non tenderness, non- distended, no hernias, no masses, no organomegaly, no ascites, no guarding, no rebound tenderness, normoactive bowel sounds. Rectal: Deferred. EXTREMITIES: No cyanosis, clubbing or edema. Result Diagram: 02/15/19 0446 02/15/19 0446 Results 24hrs Laboratory Tests Test 02/15/19 04:46 White Blood Count 9.6 # Red Blood Count 4.64 Hemoglobin 15.3 Hematocrit 45.4 Mean Corpuscular Volume 97.8 Mean Corpuscular Hemoglobin 33.0 Mean Corpuscular Hemoglobin Concent 33.7 Red Cell Distribution Width 14.6 H Platelet Count 165 Mean Platelet Volume 10.7 H Immature Granulocytes % 0.400 Neutrophils % 82.8 H Lymphocytes % 9.6 L Monocytes % 6.8 Eosinophils % 0.1 Basophils % 0.3 Nucleated Red Blood Cells % 0.0 Immature Granulocytes # 0.040 H Neutrophils # 7.9 H Lymphocytes # 0.9 Monocytes # 0.7 Eosinophils # 0.0 Basophils # 0.0 Nucleated Red Blood Cells # 0.0 Sodium Level 144 Potassium Level 3.7 Chloride Level 107 Carbon Dioxide Level 33 H Anion Gap 4 L Blood Urea Nitrogen 13 # Creatinine 0.21 L Est Glomerular Filtrat Rate mL/min Glucose Level 103 Calcium Level 10.1 Phosphorus Level 2.3 #L Magnesium Level 2.0 Exam/Review of Systems Exam Vitals Vital Signs Date Temp Pulse Resp B/P (MAP) Pulse Ox O2 O2 Flow FiO2 Time Delivery Rate 02/15/19 123/59 09:12 (80) 02/15/19 97.6 94 18 94 07:54 02/15/19 Room Air 06:46 Intake and Output 02/14/19 02/14/19 02/15/19 1515:00 23:00 07:00 IntakeIntake Total 600 ml 400 ml 800 ml OutputOutput Total 200 ml 550 ml BalanceBalance 400 ml -150 ml 800 ml Results Results 24hrs Laboratory Tests Test 02/15/19 04:46 White Blood Count 9.6 # Red Blood Count 4.64 Hemoglobin 15.3 Hematocrit 45.4 Mean Corpuscular Volume 97.8 Mean Corpuscular Hemoglobin 33.0 Mean Corpuscular Hemoglobin Concent 33.7 Red Cell Distribution Width 14.6 H Platelet Count 165 Mean Platelet Volume 10.7 H Immature Granulocytes % 0.400 Neutrophils % 82.8 H Lymphocytes % 9.6 L Monocytes % 6.8 Eosinophils % 0.1 Basophils % 0.3 Nucleated Red Blood Cells % 0.0 Immature Granulocytes # 0.040 H Neutrophils # 7.9 H Lymphocytes # 0.9 Monocytes # 0.7 Eosinophils # 0.0 Basophils # 0.0 Nucleated Red Blood Cells # 0.0 Sodium Level 144 Potassium Level 3.7 Chloride Level 107 Carbon Dioxide Level 33 H Anion Gap 4 L Blood Urea Nitrogen 13 # Creatinine 0.21 L Est Glomerular Filtrat Rate mL/min Glucose Level 103 Calcium Level 10.1 Phosphorus Level 2.3 #L Magnesium Level 2.0 Medications Medication Current Medications IV Flush (NS 3 ml) 3 ml PER PROTOCOL IV ; Start 02/14/19 at 01:00 Ondansetron HCl (Zofran Inj) 4 mg Q6H PRN IV NAUSEA/VOMITING; Start 02/14/19 at 01:00 Morphine Sulfate (morphine) 2 mg Q4H PRN IV .SEVERE PAIN 7-10; Start 02/14/19 at 01:00 Famotidine (Pepcid Iv) 20 mg Q12 IV Last administered on 02/15/19 08:33; Admin Dose 20 MG; Start 02/14/19 at 09:00 Heparin Sodium (Porcine) (Heparin (5000 Units/1ml)) 5,000 unit Q12 SC Last administered on 02/15/19 08:39; Admin Dose 5,000 UNIT; Start 02/14/19 at 09:00 Albuterol/ Ipratropium (Duoneb) 3 ml Q2H RESP THERAPY PRN HHN SHORTNESS OF BREATH; Start 02/14/19 at 01:00 Hydralazine HCl (Apresoline) 10 mg Q6H PRN IV BP >160 Last administered on 02/15/19 08:29; Admin Dose 10 MG; Start 02/14/19 at 10:30 Lorazepam (Ativan) 1 mg Q6H PRN IV ANXIETY Last administered on 02/15/19 05:49; Admin Dose 1 MG; Start 02/14/19 at 10:30 Potassium Chloride/Dextrose/ Sod Cl 1,000 ml @ 100 mls/hr Q10H IV Last administered on 02/15/19 05:48; Admin Dose 100 MLS/HR; Start 02/14/19 at 11:30 NIRMAL LATIF Feb 15, 2019 14:29
--- NOTE | 2019-02-15 21:05 | CONS ---
DATE OF ADMISSION: 02/13/2019 DATE OF CONSULTATION: 02/15/2019 TYPE OF CONSULTATION: Vascular. REFERRING PHYSICIAN: Joan Mcdermott MD REASON FOR CONSULTATION: Carotid body tumor. HISTORY OF PRESENT ILLNESS: This is an unfortunate 78-year-old woman who was admitted basically with failure to thrive. She is unable to swallow. 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 She is currently being evaluated by GI for PEG placement. On workup of her dysphagia, she was found to have large left carotid body tumor. It is 2.8 x 2.7 x 1.9 cm right in the bifurcation of the left internal and external carotid. She also has bilateral thyroid nodules and a left thyroid mass 2 cm in diameter. She had very difficult time speaking and has lost about 50 pounds in the past years. She says she cannot eat. She was going to have EGD tomorrow, but there is a question about whether she has cardiac issues so she will have a cardiac evaluation today. PAST MEDICAL HISTORY: Again significant for rheumatoid arthritis, swallowing disorder of unclear etiology, some anxiety. MEDICATIONS: Consist of: 1. Zofran. 2. Morphine. 3. Pepcid. 4. Subcutaneous heparin. 5. DuoNeb. 6. Apresoline. 7. Ativan. 8. Potassium. ALLERGIES: SHE HAS NO KNOWN DRUG ALLERGIES. SOCIAL HISTORY: She never smoked. She does not drink or use any illicit drugs. 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 PAST SURGICAL HISTORY: None. FAMILY HISTORY: Noncontributory. REVIEW OF SYSTEMS: Currently difficulty speaking. She denies chest pain or shortness of breath. No nausea, vomiting, diarrhea. She does have dysphagia. Generalized weakness I think from her weight loss and failure to thrive. No kidney problems. She has never lived at high altitude. Again, she has a left carotid body tumor and some thyroid nodules. PHYSICAL EXAMINATION: GENERAL: She is an elderly woman. She looks malnourished. She is very thin. VITAL SIGNS: She has been afebrile. Her blood pressure is 131/68, heart rate 110, respiratory rate is 18, she is 96% sat on room air. PERIPHERAL VASCULAR: She has 2+ carotid, radial and brachial pulses bilaterally. I do not really feel the tumor despite the size. I think it lodged up higher up in the neck. LUNGS: Clear. HEART: Regular rate and rhythm. She has 2+ radial and brachial pulses bilaterally. ABDOMEN: Soft, nontender, nondistended. EXTREMITIES: She has 2+ femoral and popliteal and 1 to 2+ DP pulses bilaterally. She has no wounds on her feet. She has no edema. LABORATORY VALUES: All essentially normal. DIAGNOSTIC DATA: Again, I reviewed the CT of the neck and apparently, there is going to be some reprocessing done on the data. It was not a CT angiogram but contrast was given and it does show 2.8 cm left carotid body tumor and patent carotids. IMPRESSION: I do not think this tumor has anything to do with her symptoms. It is not really big enough to be causing obstruction of her epiglottis and preventing her from swallowing. She likely has some underlying autoimmune disorder causing her dysphagia. I would agree with PEG is very appropriate and once she has gotten her nutritional status improved and she is more stable, I would consider excising the carotid body tumor. It is locally aggressive, although not metastatic in most cases. I discussed that with her daughter. I will follow along with you while she is in the hospital and schedule an appointment in the future once she is in better shape. Dictated By: AUSTEN RODGERS/MIGUEL Conf#: [id number] DID#: [id number] CC: LUIS PEREZ MD; ADRIANA ESPINOSA MD; JOAN MCDERMOTT MD; MANDA RYDER;*EndCC* MTDD
[2019-02-16 01:28] VITALS: BP 150/74; PULSE 105; RESP 18
--- NOTE | 2019-02-16 01:55 | CONS ---
DATE OF ADMISSION: 02/13/2019 DATE OF CONSULTATION: 02/15/2019 REASON FOR CONSULTATION: Preoperative evaluation. REQUESTING PHYSICIAN: Dr. Mcdermott from the hospitalist service. HISTORY OF PRESENT ILLNESS: Ms. He Puente is a 78-year-old female with a history of rheuma toid arthritis, previously on Remicade was complicated by a development of esophagitis secondary to i nfections. The patient additionally had a worsening dysmotility of her esophagus and poor p.o. intak e and subsequently developed failure to thrive with significant loss of weight, 50 pounds in the last year. Initially upon arrival, temperature 98.4, blood pressure 146/78, pulse 104, respiratory rate 20, satting 95%. The patient's labs notable for white blood count 6.6, hemoglobin 15.5, platelet cou nt 177. Sodium of 149, potassium 3.5, creatinine 0.3, BUN 28, troponin negative. UA borderline. Th e patient underwent a chest x-ray revealing a medial left base semicircular opacity with mild bilater al central bronchitis. A soft tissue neck CT which was approximately 1.9 x 2.7 x 2.8 cm hypervascula r mass centered at the left carotid bifurcation. A chest CT revealed a rounded density seen at the l eft base which corresponds posterior elevation of left diaphragm, mild posterior lesion of the right diaphragm, multifocal atherosclerotic calcifications including the aortic coronary and carotid and ab dominal pelvic CT that revealed no definite acute intra-abdominal or pelvic abnormality, scattered he patic cysts. The patient's electrocardiogram reveals normal sinus rhythm, rate of 89 with left axis deviation, right bundle branch block, left anterior fascicular block, left ventricular pressure volta ge criteria. The patient is admitted to the floor, placed on IV push p.r.n. hydralazine with ongoing continued uncontrolled blood pressures. Additionally, the patient has been consulted by vascular lovelace rgrahul after findings of carotid body tumor. The patient is to undergo PEG placement and cardiology e valuation has been requested preoperatively. PAST MEDICAL HISTORY: As above in HPI. MEDICATIONS CURRENTLY IN HOSPITAL: 1. Hydralazine IV push. 2. Ativan IV push p.r.n. 3. Pepcid 20 mg IV q.12. 4. Heparin 5000 subQ q.12. 5. Zofran p.r.n. 6. Morphine p.r.n. 7. DuoNebs p.r.n. ALLERGIES: NO KNOWN DRUG ALLERGIES. SOCIAL HISTORY: No current tobacco, ETOH, or illicit drug use. FAMILY HISTORY: No history of sudden cardiac or early CAD. REVIEW OF SYSTEMS: As above in HPI. CONSTITUTIONAL: No fevers, chills. PULMONARY: No current shortness of breath. CARDIOVASCULAR: Carotid body tumor. GASTROINTESTINAL: No vomiting. GENITOURINARY: No hematuria. MUSCULOSKELETAL: Generalized wasting. PSYCHIATRIC: Anxiety. NEUROLOGIC: No history of CVA. PHYSICAL EXAMINATION VITAL SIGNS: Temperature 97.9, blood pressure most recently 139/71, pulse 90, respiratory rate 18, s atting 96%. GENERAL: The patient is alert, awake, in no acute distress. NECK: JVP approximately 8 cm of water. CHEST: Fair movement throughout with mildly decreased breath sounds at base bilaterally. HEART: Regular rate and rhythm. Normal S1, S2, I/ systolic murmur. Nondisplaced PMI. ABDOMEN: Positive bowel sounds, soft. EXTREMITIES: No edema, 1+ pulses bilateral posterior tibial. LABORATORY DATA: Most recently from today, sodium 144, potassium 3.7, creatinine 0.2, BUN 13, magnes ium 2. Troponin negative x1. White blood cell count 9.6, hemoglobin 15.3, platelet count 165. IMAGING STUDIES: As above in HPI. No further imaging studies for my review at this time. ECG: As above in HPI. No further electrocardiograms for my review at this time. IMPRESSION: 1. Preoperative evaluation prior to placement of a PEG tube for dysphagia, failure to thrive. 2. Failure to thrive. 3. Hypertension. 4. Abnormal electrocardiogram with right bundle branch block pattern, secondary repolarization abnor malities, left anterior fascicular block. 5. Carotid body tumor. 6. Generalized wasting and cachexia. 7. Anxiety. 8. Rheumatoid arthritis. RECOMMENDATIONS: 1. At this time, would complete the patient's rule out for myocardial infarction to ensure the patie nt's EKG abnormalities are chronic in nature and not due to any recent acute coronary syndromes and t hus send troponins q.6 x2. 2. Will follow up patient's 2D echo done for assessment of ejection fraction, wall motion, rule out any major valve abnormalities. 3. Check a followup EKG in the morning to assess for any significant changes. 4. Would continue the patient's IV push p.r.n. hydralazine and will place clonidine patch in the pat ient to improve overall systolic blood pressure control while awaiting PEG placement. 5. If the patient's echo returns without significant abnormalities such a low EF or contraindication s, valve lesions such as aortic stenosis, the patient's troponins return negative at that time, the p atient will be okay to proceed to placement of PEG at moderate cardiovascular risk. Dictated By: AUSTEN SINGER/MIGUEL Conf#: [id number] DID#: [id number] CC: JAKE MCDERMOTT MD; LUIS PEREZ MD;*End*
[2019-02-16] MEDS: D5W-0.45 NACL + KCL 20 MEQ 1,000 ML IV SCH ×3 (03:45→23:21)
[2019-02-16 07:46] VITALS: BP 178/81; PULSE 98; RESP 18
[2019-02-16] MEDS: FAMOTIDINE 20 MG INJ IV SCH ×2 (09:11→20:56)
[2019-02-16] MEDS: HEPARIN 5,000 UNIT/1 ML VIAL SC SCH ×2 (09:12→20:57)
--- NOTE | 2019-02-16 13:10 | PN ---
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 Continue IVF - mouth swabs NPO Patient seen in collaboration with Dr. Mendoza Subjective: Course reviewed with nursing staff Patient interviewed and examined All labs, imaging and other results reviewed No family at bedside, pt is comfortable, resting well, will allow to sleep Continue close observation. PHYSICAL EXAMINATION: GENERAL: Cachectic, alert & oriented x 3, SKIN: No lesions EYES: Pupils equal reactive to light, no discharge. EARS/NOSE AND THROAT: Ears normal, nose normal, mouth NECK: Supple, no masses CHEST: Inspection within normal limits. CARDIOVASCULAR: Heart: Regular rate and rhythm RESPIRATORY: Lungs clear to auscultation GASTROINTESTINAL AND LIVER: Abdomen: Soft, sunken abd, non tenderness, non- distended, no hernias, no masses, no organomegaly, no ascites, no guarding, no rebound tenderness, normoactive bowel sounds. Rectal: Deferred. EXTREMITIES: No cyanosis, clubbing or edema. Result Diagram: 02/15/19 0446 02/15/19 0446 Results 24hrs Laboratory Tests Test 02/16/19 01:21 02/16/19 04:52 Troponin I 0.026 0.020 Triglycerides Level 55 Cholesterol Level 108 LDL Cholesterol, Calculated 51 HDL Cholesterol 46 Cholesterol/HDL Ratio 2.3 Exam/Review of Systems Exam Vitals Vital Signs Date Temp Pulse Resp B/P (MAP) Pulse Ox O2 O2 Flow FiO2 Time Delivery Rate 02/16/19 97.6 98 18 178/81 95 07:46 (113) 02/15/19 Room Air 06:46 Intake and Output 02/15/19 02/15/19 02/16/19 1515:00 23:00 07:00 IntakeIntake Total 900 ml 1125 ml BalanceBalance 900 ml 1125 ml Results Results 24hrs Laboratory Tests Test 02/16/19 01:21 02/16/19 04:52 Troponin I 0.026 0.020 Triglycerides Level 55 Cholesterol Level 108 LDL Cholesterol, Calculated 51 HDL Cholesterol 46 Cholesterol/HDL Ratio 2.3 Medications Medication Current Medications IV Flush (NS 3 ml) 3 ml PER PROTOCOL IV ; Start 02/14/19 at 01:00 Ondansetron HCl (Zofran Inj) 4 mg Q6H PRN IV NAUSEA/VOMITING; Start 02/14/19 at 01:00 Morphine Sulfate (morphine) 2 mg Q4H PRN IV .SEVERE PAIN 7-10; Start 02/14/19 at 01:00 Famotidine (Pepcid Iv) 20 mg Q12 IV Last administered on 02/16/19 09:11; Admin Dose 20 MG; Start 02/14/19 at 09:00 Heparin Sodium (Porcine) (Heparin (5000 Units/1ml)) 5,000 unit Q12 SC Last administered on 02/16/19 09:12; Admin Dose 5,000 UNIT; Start 02/14/19 at 09:00 Albuterol/ Ipratropium (Duoneb) 3 ml Q2H RESP THERAPY PRN HHN SHORTNESS OF BREATH; Start 02/14/19 at 01:00 Hydralazine HCl (Apresoline) 10 mg Q6H PRN IV BP >160 Last administered on 02/15/19at 15:54; Admin Dose 10 MG; Start 02/14/19 at 10:30 Lorazepam (Ativan) 1 mg Q6H PRN IV ANXIETY Last administered on 02/15/19 17:51; Admin Dose 1 MG; Start 02/14/19 at 10:30 Potassium Chloride/Dextrose/ Sod Cl 1,000 ml @ 100 mls/hr Q10H IV Last administered on 02/16/19 03:45; Admin Dose 100 MLS/HR; Start 02/14/19 at 11:30 NIRMAL LATIF Feb 16, 2019 13:10
[2019-02-16 14:00] VITALS: BP 145/76; PULSE 104; RESP 18
--- NOTE | 2019-02-16 17:06 | RADRPT ---
Vent Rate: 99 bpm RR Interval: 0 msec NM Interval: 132 msec QRS Duration: 118 msec QT Interval: 378 msec QTC Interval: 485 msec P-R-T [place]: 60 - -81 - 64 degrees Normal sinus rhythm Left anterior fascicular block Left ventricular hypertrophy with QRS widening Abnormal ECG Electronically Signed By: Greg Mott
[2019-02-16 20:14] VITALS: BP 123/71; PULSE 97; RESP 19
--- NOTE | 2019-02-16 20:21 | RADRPT ---
Echocardiogram Report Patient Name: RANDAL SINGLETARYPatient ID: [id number] : 1940 (78y 7m)Study Date: 02/16/2019 7:05:53 AM Gender: FAccession #: [id number] Tech: [place] Location: Ref.Physician: AUSTEN BARGER Height(Cm): BSA: Weight(Kg): Quality: AdequateAccount #: Procedures: Echocardiographic Report: Transthoracic echocardiogram with complete 2D, M-Mode, and doppler examination. Indications: Pre-op. Measurements: 2D/M Mode Doppler Measurement Value Normal Range Measurement Value Normal Range LVIDd 2D 3.2 [ 3.8 - 5.2 ] cm AV Peak Papito 1.4 [ 100.0 - 170.0 ] cm/sec LVIDs 2D 2.4 [ 2.2 - 3.5 ] cm AV Peak PG 8.0 [ 2.0 - 9.0 ] mmHg LVPWd 2D 1.2 [ 0.6 - 0.9 ] cm LVOT Peak Papito 1.0 [ 70.0 - 110.0 ] cm/sec IVSd 2D 1.4 [ 0.6 - 0.9 ] cm LVOT Peak PG 4.0 [ 2.0 - 6.0 ] mmHg AoR Diam 2D 2.9 [ 2.3 - 3.1 ] cm Lat E` Papito 0.1 [ 10.0 - 15.0 ] cm/sec EDV 2D 41.6 [ 46.0 - 106.0 ] ml ESV 2D 20.8 [ 14.0 - 42.0 ] ml EF 2D 50.0 [ 54.0 - 74.0 ] percent LA Dimen 2D 2.1 [ 2.7 - 3.8 ] cm Findings: Left Ventricle: Normal left ventricular systolic function. Normal left ventricular cavity size. Moderate global left ventricular systolic dysfunction. Ejection fraction is visually estimated at 55-60 %. Tissue Doppler/Mitral Doppler indices are consistent with impaired relaxation (Stage I diastolic dysfunction). Right Ventricle: Normal right ventricular size. Normal right ventricular systolic function. Left Atrium: The left atrium is normal in size. Right Atrium: The right atrium is normal in size. Mitral Valve: Mild mitral leaflet calcification. Mild mitral annular calcification. Trace mitral regurgitation. Aortic Valve: No significant aortic stenosis or insufficiency. Aortic cusps appear mildly calcified. Tricuspid Valve: Normal appearance of the tricuspid valve. Unable to obtain RVSP due to minimal presence of tricuspid regurgitation. Pulmonic Valve: Pulmonic valve not well visualized. Pericardium: Trivial pericardial effusion. Aorta: Normal aortic root. IVC: Normal size and normal respiratory collapse consistent with normal right atrial pressure. Conclusions: Normal left ventricular systolic function. Normal left ventricular cavity size. Moderate global left ventricular systolic dysfunction. Ejection fraction is visually estimated at 55-60 %. Tissue Doppler/Mitral Doppler indices are consistent with impaired relaxation (Stage I diastolic dysfunction). Mild mitral leaflet calcification. Mild mitral annular calcification. Trace mitral regurgitation. Normal appearance of the tricuspid valve. Unable to obtain RVSP due to minimal presence of tricuspid regurgitation. Trivial pericardial effusion. Electronically Signed By: Austen Barger 2019-02-16 20:21:09 PDT
--- NOTE | 2019-02-16 20:25 | CONS ---
Assessment/Plan Assessment/Plan Hospital Course (Demo Recall) IMPRESSION: 1. Preoperative evaluation prior to placement of a PEG tube for dysphagia, failure to thrive.-neg trop x 3/NL EF by echo with no sig valve abnl 2. Failure to thrive. 3. Hypertension. 4. Abnormal electrocardiogram with right bundle branch block pattern, secondary repolarization abnormalities, left anterior fascicular block. 5. Carotid body tumor. 6. Generalized wasting and cachexia. 7. Anxiety. 8. Rheumatoid arthritis. Recc: -OK to proceed to PEG placement at moderate cv risk without further noninvasive evaluation -Follow labile BP closely and use IVP PRN antihypertensives as necessary Consultation Date/Type/Reason Admit Date/Time Feb 13, 2019 at 23:02 Initial Consult Date 02/14/19 Type of Consult Cardiology Reason for Consultation Preop Requesting Provider: JAKE MCDERMOTT MD Date/Time of Note DATE: 02/16/19 TIME: 20:21 Exam/Review of Systems Vital Signs Vitals Vital Signs Date Temp Pulse Resp B/P (MAP) Pulse Ox O2 O2 Flow FiO2 Time Delivery Rate 02/16/19 98.2 97 19 123/71 95 20:14 (88) 02/16/19 Room Air 14:00 Intake and Output 02/15/19 02/15/19 02/16/19 1414:59 22:59 06:59 IntakeIntake Total 900 ml 1125 ml BalanceBalance 900 ml 1125 ml Exam Exam Review of Systems: CONSTITUTIONAL: No fevers, chills. PULMONARY: No sob CARDIOVASCULAR: No chest pain/palpitations GASTROINTESTINAL: No nausea/vomiting. GENITOURINARY: No hematuria/dysuria. MUSCULOSKELETAL: No myagias/arthalgias. PSYCHIATRIC: The patient denies depression. NEUROLOGIC: No weakness Constitutional: alert Psych: no complaints Head: normocephalic ENMT: mucosa pink and moist Neck: supple, jvd (9 cmwater) Respiratory: clear to auscultation Cardiovascular: regular rate and rhythm Gastrointestinal: soft, non-tender Musculoskeletal: muscle tone (normal) Extremities: edema (none) 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: other (No focal deficits) Labs Result Diagram: 02/15/19 0446 02/15/196 Results 24hrs Laboratory Tests Test 02/16/19 01:21 02/16/19 04:52 Troponin I 0.026 0.020 Triglycerides Level 55 Cholesterol Level 108 LDL Cholesterol, Calculated 51 HDL Cholesterol 46 Cholesterol/HDL Ratio 2.3 Medications Medications Current Medications IV Flush (NS 3 ml) 3 ml PER PROTOCOL IV ; Start 02/14/19 at 01:00 Ondansetron HCl (Zofran Inj) 4 mg Q6H PRN IV NAUSEA/VOMITING; Start 02/14/19 at 01:00 Morphine Sulfate (morphine) 2 mg Q4H PRN IV .SEVERE PAIN 7-10; Start 02/14/19 at 01:00 Famotidine (Pepcid Iv) 20 mg Q12 IV Last administered on 02/16/19 09:11; Admin Dose 20 MG; Start 02/14/19 at 09:00 Heparin Sodium (Porcine) (Heparin (5000 Units/1ml)) 5,000 unit Q12 SC Last administered on 02/16/19 09:12; Admin Dose 5,000 UNIT; Start 02/14/19 at 09:00 Albuterol/ Ipratropium (Duoneb) 3 ml Q2H RESP THERAPY PRN HHN SHORTNESS OF BREATH; Start 02/14/19 at 01:00 Hydralazine HCl (Apresoline) 10 mg Q6H PRN IV BP >160 Last administered on 02/15/19at 15:54; Admin Dose 10 MG; Start 02/14/19 at 10:30 Lorazepam (Ativan) 1 mg Q6H PRN IV ANXIETY Last administered on 02/15/19 17:51; Admin Dose 1 MG; Start 02/14/19 at 10:30 Potassium Chloride/Dextrose/ Sod Cl 1,000 ml @ 100 mls/hr Q10H IV Last administered on 02/16/19at 14:17; Admin Dose 100 MLS/HR; Start 02/14/19 at 11:30 AUSTEN WONG Feb 16, 2019 20:25
[2019-02-16] MEDS: morphine 2 MG INJ IV PRN (21:32)
[2019-02-17] VITALS (13 sets, daily range): BP systolic 129–179; BP diastolic 60–87; PULSE 86–118; RESP 13–18
[2019-02-17] MEDS: FAMOTIDINE 20 MG INJ IV SCH ×2 (09:03→21:07)
[2019-02-17] MEDS: hydrALAzine 20 MG INJ IV PRN (09:04)
[2019-02-17] MEDS: HEPARIN 5,000 UNIT/1 ML VIAL SC SCH ×2 (09:07→21:13)
[2019-02-17] MEDS: D5W-0.45 NACL + KCL 20 MEQ 1,000 ML IV SCH ×3 (09:30→19:30)
[2019-02-17] MEDS: morphine 2 MG INJ IV PRN ×2 (11:20→17:33)
--- NOTE | 2019-02-17 16:09 | PREAC ---
Date/Time of Note Date/Time of Note DATE: 02/17/19 TIME: 16:05 Anesthesia Eval and Record Evaluation Time Pre-Procedure Interview DATE: 02/17/19 TIME: 16:05 Age 78 Sex female NPO: 8 hrs Preoperative diagnosis dysphagia Planned procedure EGD Past Medical History Past Medical History: Includes Cardio: HTN, Other (right bundle branch block, LAFB) Musculoskeletal: Rheumatoid arthritis Surgery & Anesthesia Issues No known issue Meds Anticoagulation: No Beta Kathleen within 24 hr: No Reason Beta Kathleen not given: Pt. not on B-Kathleen Reported Medications Methotrexate* (Methotrexate*) 2.5 Mg Tab, 7.5 MG PO MONTHLY, TAB 02/14/19 Alprazolam* (Alprazolam*) 0.25 Mg Tablet, 0.25 MG PO TID PRN for ANXIETY, TAB 02/14/19 Hydroxyzine Hcl* (Hydroxyzine Hcl*) 10 Mg Tablet, 10 MG PO Q6H PRN for ITCHING, #30 TAB 02/14/19 Hydrocodone/Acetaminophen (Ruthven 5-325 Tablet) 1 Each Tablet, 1 EACH PO Q6H PRN for PAIN LEVEL 6-10, TAB 02/14/19 Current Medications IV Flush (NS 3 ml) 3 ml PER PROTOCOL IV ; Start 02/14/19 at 01:00 Ondansetron HCl (Zofran Inj) 4 mg Q6H PRN IV NAUSEA/VOMITING; Start 02/14/19 at 01:00 Morphine Sulfate (morphine) 2 mg Q4H PRN IV .SEVERE PAIN 7-10 Last administered on 02/17/19at 11:20; Admin Dose 2 MG; Start 02/14/19 at 01:00 Famotidine (Pepcid Iv) 20 mg Q12 IV Last administered on 02/17/19at 09:03; Admin Dose 20 MG; Start 02/14/19 at 09:00 Heparin Sodium (Porcine) (Heparin (5000 Units/1ml)) 5,000 unit Q12 SC Last administered on 02/17/19at 09:07; Admin Dose 5,000 UNIT; Start 02/14/19 at 09:00 Albuterol/ Ipratropium (Duoneb) 3 ml Q2H RESP THERAPY PRN HHN SHORTNESS OF BREATH; Start 02/14/19 at 01:00 Hydralazine HCl (Apresoline) 10 mg Q6H PRN IV BP >160 Last administered on 02/17/19at 09:04; Admin Dose 10 MG; Start 02/14/19 at 10:30 Lorazepam (Ativan) 1 mg Q6H PRN IV ANXIETY Last administered on 02/15/19at 1 7:51; Admin Dose 1 MG; Start 02/14/19 at 10:30 Potassium Chloride/Dextrose/ Sod Cl 1,000 ml @ 100 mls/hr Q10H IV Last administered on 02/17/19at 11:21; Admin Dose 100 MLS/HR; Start 02/14/19 at 11:30 Meds reviewed: Yes Allergies Coded Allergies: No Known Drug Allergy (Verified Allergy, Unknown, 02/13/19) Allergies Reviewed: Yes Labs/Studies Labs Reviewed: Reviewed by anesthesiologist Result Diagram: 02/15/1944502/15/19445 test: N/A Studies: 2D Echo Pre-procedure Exam Last vitals Vital Signs Date Temp Pulse Resp B/P (MAP) Pulse Ox O2 O2 Flow FiO2 Time Delivery Rate 02/17/19 97.8 104 18 139/63 98 15:20 (88) 02/16/19 Room Air 14:00 Airway: Adequate mouth opening, Adequate thyromental dist Mallampati: Mallampati II Teeth: Normal Lung: Normal Heart: Normal ASA Physical Status ASA physical status: 2 Emergency: None Planned Anesthetic General/MAC: Mask Planned Pain Management Parenteral pain med Pre-operative Attestations Prior to commencing anesthesia and surgery, the patient was re-evaluated, there was verification of: *The patient's identity *The results of appropriate recent lab work and preoperative vital signs *The above evaluation not changing prior to induction *Anesthetic plan, risk benefits, alternative and complications discussed with patient/family; questions answered; patient/family understands, accepts and wishes to proceed. PAVAN BRYANT MD Feb 17, 2019 16:09
[2019-02-17] MEDS ORDERED: LIDOCAINE 2% (SDV) 5 ML INJ ONE (16:12)
[2019-02-17] MEDS ORDERED: PROPOFOL 20 ML ONE (16:12)
--- NOTE | 2019-02-17 16:14 | HPN ---
Date/Time of Note Date/Time of Note DATE: 02/17/19 TIME: 16:14 Interval H&P Admission Note Pt. seen H&P reviewed: No system changes RONNI LUO Feb 17, 2019 16:14
[2019-02-17] MEDS ORDERED: FENTAnyl 50 MCG/ML VIAL ONE (16:16)
[2019-02-17] MEDS ORDERED: PHENYLephrine (100 MCG/ML) 10ML SYG ONE (16:29)
[2019-02-17] MEDS ORDERED: ONDANSETRON 4 MG INJ IV PRN (16:30)
[2019-02-17] MEDS ORDERED: FENTAnyl 50 MCG/ML VIAL IV PRN (16:30)
[2019-02-17] MEDS ORDERED: HYDROmorphONE 1 MG/5 ML IV SYRINGE IV PRN ×2 (16:30)
[2019-02-17] MEDS ORDERED: ESMOLOL 10 ML ONE (16:32)
--- NOTE | 2019-02-17 16:38 | PN ---
Date/Time of Note Date/Time of Note DATE: 02/17/19 TIME: 16:34 Assessment/Plan VTE Prophylaxis Risk score (from Ns)>0 risk: 8 SCD applied (from Ns): Yes Pharmacological prophylaxis: heparin Lines/Catheters IV [facility] Saline Lock Assessment/Plan Assessment/Plan 1. Dysphagia, needs G-tube due to severe malnutrition from the poor intake 2. 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 Brown 3. Bilateral thyroid nodules measures up to 2 cm in the left thyroid lobe, ENT consult Dr. Bray 4. Anxiety, ativan prn 5. Malnutrition due to poor intake, consider G-tube 6. Hypokalemia, corrected 7. DVT prophylaxis: heparin sq Result Diagram: 02/15/1944502/15/19445 Results 24hrs Laboratory Tests Test 02/17/19 04:35 Prothrombin Time 14.0 Prothrombin Time Ratio 1.1 INR International Normalized Ratio 1.07 Subjective 24 Hr Interval Summary Free Text/Dictation This is a note for 02/16/2019. I saw and examined the patient and talked with her daughter., but I forgot to put a note. agitated, nonverbal Exam/Review of Systems Exam Vitals Vital Signs Date Temp Pulse Resp B/P (MAP) Pulse Ox O2 O2 Flow FiO2 Time Delivery Rate 02/17/19 97.8 104 18 139/63 98 15:20 (88) 02/16/19 Room Air 14:00 Intake and Output 02/16/19 02/16/19 02/17/19 1515:00 23:00 07:00 IntakeIntake Total 875 ml 300 ml 700 ml BalanceBalance 875 ml 300 ml 700 ml Constitutional: alert, oriented, well developed Psych: anxiety Head: normocephalic, atraumatic Eyes: nl conjunctiva, EOMI, nl lids, PERRL ENMT: nl external ears & nose, nl lips & teeth, nl nasal mucosa & septum Neck: supple, non-tender Respiratory: clear to auscultation, normal air movement; No congested cough, No crackles/rales, No diminished breath sounds, No intercostal retraction, No labored breathing, No respirations, No tactile christopher mitus, No wheezing, No other Cardiovascular: regular rate and rhythm, nl pulses; No bruits, No diastolic murmur, No edema, No gallop, No irregular rhythm, No jugular venous distention (JVD), No murmurs/extra sounds, No rub, No systolic murmur, No S3, No S4, No other Gastrointestinal: soft, nl liver, spleen, non-tender Musculoskeletal: nl extremities to inspection Extremities: normal pulses; No calf tenderness, No cyanosis, No clubbing, No edema, No pitting pedal edema, No palpable cord, No tenderness, No other 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, nl mental status, nl speech, nl strength Skin: nl turgor Results Results 24hrs Laboratory Tests Test 02/17/19 04:35 Prothrombin Time 14.0 Prothrombin Time Ratio 1.1 INR International Normalized Ratio 1.07 Medications Medication Current Medications IV Flush (NS 3 ml) 3 ml PER PROTOCOL IV ; Start 02/14/19 at 01:00 Ondansetron HCl (Zofran Inj) 4 mg Q6H PRN IV NAUSEA/VOMITING; Start 02/14/19 at 01:00 Morphine Sulfate (morphine) 2 mg Q4H PRN IV .SEVERE PAIN 7-10 Last administered on 02/17/19 11:20; Admin Dose 2 MG; Start 02/14/19 at 01:00 Famotidine (Pepcid Iv) 20 mg Q12 IV Last administered on 02/17/19 09:03; Admin Dose 20 MG; Start 02/14/19 at 09:00 Heparin Sodium (Porcine) (Heparin (5000 Units/1ml)) 5,000 unit Q12 SC Last administered on 02/17/19 09:07; Admin Dose 5,000 UNIT; Start 02/14/19 at 09:00 Albuterol/ Ipratropium (Duoneb) 3 ml Q2H RESP THERAPY PRN HHN SHORTNESS OF BREATH; Start 02/14/19 at 01:00 Hydralazine HCl (Apresoline) 10 mg Q6H PRN IV BP >160 Last administered on 02/17/19at 09:04; Admin Dose 10 MG; Start 02/14/19 at 10:30 Lorazepam (Ativan) 1 mg Q6H PRN IV ANXIETY Last administered on 02/15/19at 17:51; Admin Dose 1 MG; Start 02/14/19 at 10:30 Potassium Chloride/Dextrose/ Sod Cl 1,000 ml @ 100 mls/hr Q10H IV Last administered on 02/17/19at 11:21; Admin Dose 100 MLS/HR; Start 02/14/19 at 11:30 Hydromorphone HCl (Dilaudid) 0.2 mg PACU PRN IV MILD PAIN 1-3; Start 02/17/19 at 16:30; Stop 02/17/19 at 20:30 Hydromorphone HCl (Dilaudid) 0.4 mg PACU PRN IV MOD PAIN 4-6; Start 02/17/19 at 16:30; Stop 02/17/19 at 20:30 Fentanyl (Sublimaze) 25 mcg PACU ORDER PRN IV MILD PAIN 1-3; Start 02/17/19 at 16:30; Stop 02/17/19 at 20:30 Ondansetron HCl (Zofran Inj) 4 mg PACU ORDER PRN IV NAUSEA/VOMITING; Start 02/17/19 at 16:30; Stop 02/17/19 at 20:30 Potassium Phosphate 15 mm/ Sodium Chloride 255 ml @ 63.75 mls/ hr ONCE ONCE IVPB ; Start 02/17/19 at 16:30; Stop 02/17/19 at 20:29; Status JAKE ESPAÑA MD Feb 17, 2019 16:38
--- NOTE | 2019-02-17 16:41 | PN ---
Date/Time of Note Date/Time of Note DATE: 02/17/19 TIME: 16:38 Assessment/Plan VTE Prophylaxis Risk score (from Ns)>0 risk: 8 SCD applied (from Ns): Yes Pharmacological prophylaxis: heparin Lines/Catheters IV Catheter Type (from Nrs): Saline Lock Assessment/Plan Assessment/Plan 1. Dysphagia, s/p G-tube placement on 02/17/2019, start tube feeding 2. 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 Brown, patient will need surgery electively when nutrition status is improved 3. Bilateral thyroid nodules measures up to 2 cm in the left thyroid lobe, outpatient ENT 4. Anxiety, ativan prn 5. Malnutrition due to poor intake, consider G-tube 6. Hypophosphatemia, Phos supplement 7. DVT prophylaxis: heparin sq Result Diagram: 02/15/1944502/15/196 Results 24hrs Laboratory Tests Test 02/17/19 04:35 Prothrombin Time 14.0 Prothrombin Time Ratio 1.1 INR International Normalized Ratio 1.07 Subjective 24 Hr Interval Summary Free Text/Dictation just had G-tube placed Exam/Review of Systems Exam Vitals Vital Signs Date Temp Pulse Resp B/P (MAP) Pulse Ox O2 O2 Flow FiO2 Time Delivery Rate 02/17/19 97.8 104 18 139/63 98 15:20 (88) 02/16/19 Room Air 14:00 Intake and Output 02/16/19 02/16/19 02/17/19 1515:00 23:00 07:00 IntakeIntake Total 875 ml 300 ml 700 ml BalanceBalance 875 ml 300 ml 700 ml Constitutional: alert, non-verbal Head: normocephalic, atraumatic Eyes: nl conjunctiva, EOMI, nl lids, PERRL ENMT: nl external ears & nose, nl lips & teeth, nl nasal mucosa & septum Neck: supple Respiratory: clear to auscultation, normal air movement; No congested cough, No crackles/rales, No diminished breath sounds, No intercostal retraction, No labored breathing, No respirations, No tactile fremitus, No wheezing, No other Cardiovascular: regular rate and rhythm, nl pulses; No bruits, No diastolic murmur, No edema, No gallop, No irregular rhythm, No jugular venous distention (JVD), No murmurs/extra sounds, No rub, No systolic murmur, No S3, No S4, No other Gastrointestinal: soft, nl liver, spleen, other (G-tube in place) Musculoskeletal: nl extremities to inspection Extremities: normal pulses; No calf tenderness, No cyanosis, No clubbing, No edema, No pitting pedal edema, No palpable cord, No tenderness, No other 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, nl mental status Results Results 24hrs Laboratory Tests Test 02/17/19 04:35 Prothrombin Time 14.0 Prothrombin Time Ratio 1.1 INR International Normalized Ratio 1.07 Medications Medication Current Medications IV Flush (NS 3 ml) 3 ml PER PROTOCOL IV ; Start 02/14/19 at 01:00 Ondansetron HCl (Zofran Inj) 4 mg Q6H PRN IV NAUSEA/VOMITING; Start 02/14/19 at 01:00 Morphine Sulfate (morphine) 2 mg Q4H PRN IV .SEVERE PAIN 7-10 Last administered on 02/17/19at 11:20; Admin Dose 2 MG; Start 02/14/19 at 01:00 Famotidine (Pepcid Iv) 20 mg Q12 IV Last administered on 02/17/19at 09:03; Admin Dose 20 MG; Start 02/14/19 at 09:00 Heparin Sodium (Porcine) (Heparin (5000 Units/1ml)) 5,000 unit Q12 SC Last administered on 02/17/19 09:07; Admin Dose 5,000 UNIT; Start 02/14/19 at 09:00 Albuterol/ Ipratropium (Duoneb) 3 ml Q2H RESP THERAPY PRN HHN SHORTNESS OF BREATH; Start 02/14/19 at 01:00 Hydralazine HCl (Apresoline) 10 mg Q6H PRN IV BP >160 Last administered on 02/17/19at 09:04; Admin Dose 10 MG; Start 02/14/19 at 10:30 Lorazepam (Ativan) 1 mg Q6H PRN IV ANXIETY Last administered on 02/15/19 17 :51; Admin Dose 1 MG; Start 02/14/19 at 10:30 Potassium Chloride/Dextrose/ Sod Cl 1,000 ml @ 100 mls/hr Q10H IV Last administered on 02/17/19at 11:21; Admin Dose 100 MLS/HR; Start 02/14/19 at 11:30 Hydromorphone HCl (Dilaudid) 0.2 mg PACU PRN IV MILD PAIN 1-3; Start 02/17/19 at 16:30; Stop 02/17/19 at 20:30 Hydromorphone HCl (Dilaudid) 0.4 mg PACU PRN IV MOD PAIN 4-6; Start 02/17/19 at 16:30; Stop 02/17/19 at 20:30 Fentanyl (Sublimaze) 25 mcg PACU ORDER PRN IV MILD PAIN 1-3; Start 02/17/19 at 16:30; Stop 02/17/19 at 20:30 Ondansetron HCl (Zofran Inj) 4 mg PACU ORDER PRN IV NAUSEA/VOMITING; Start 02/17/19 at 16:30; Stop 02/17/19 at 20:30 Potassium Phosphate 15 mm/ Sodium Chloride 255 ml @ 63.75 mls/ hr ONCE ONCE IVPB ; Start 02/17/19 at 16:30; Stop 02/17/19 at 20:29; Status JAKE ESPAÑA MD Feb 17, 2019 16:41
--- NOTE | 2019-02-17 16:47 | PAC ---
Date/Time of Note Date/Time of Note DATE: 02/17/19 TIME: 16:46 Post-Anesthesia Notes Post-Anesthesia Note Last documented vital signs Vital Signs Date Temp Pulse Resp B/P (MAP) Pulse Ox O2 O2 Flow FiO2 Time Delivery Rate 02/17/19 97.8 104 18 139/63 98 15:20 (88) 02/16/19 Room Air 14:00 Activity: WNL Respiratory function: WNL Cardiovascular function: WNL Mental status: Baseline Pain reasonably controlled: Yes Hydration appropriate: Yes Nausea/Vomiting absent: Yes Comments BP: 139/67 HR: 92 RR: 15 T: 98.6 SaO2: 100% PAVAN BRYANT MD Feb 17, 2019 16:47
[2019-02-17] MEDS ORDERED: ACETAMINOPHEN 650MG/20.3ML CUP GTB PRN (17:00)
[2019-02-17] MEDS ORDERED: SODIUM PHOSPHATE 15 MMOL in SOD CHLORIDE 0.9% 250 ML IV ONE (18:00)
--- NOTE | 2019-02-17 18:02 | CONS ---
Assessment/Plan Assessment/Plan Hospital Course (Demo Recall) IMPRESSION: 1. Preoperative evaluation prior to placement of a PEG tube for dysphagia, failure to thrive.-neg trop x 3/NL EF by echo with no sig valve abnl 2. Failure to thrive. 3. Hypertension. 4. Abnormal electrocardiogram with right bundle branch block pattern, secondary repolarization abnormalities, left anterior fascicular block. 5. Carotid body tumor. 6. Generalized wasting and cachexia. 7. Anxiety. 8. Rheumatoid arthritis. Recc: -OK to proceed to PEG placement at moderate cv risk without further noninvasive evaluation. Now post-op s/p G tube today -Start PO antihypertensives once able to use G tube Consultation Date/Type/Reason Admit Date/Time Feb 13, 2019 at 23:02 Initial Consult Date 02/14/19 Type of Consult Cardiology Reason for Consultation Preop Requesting Provider: JAKE MCDERMOTT MD Date/Time of Note DATE: 02/17/19 TIME: 18:00 Exam/Review of Systems Vital Signs Vitals Vital Signs Date Temp Pulse Resp B/P (MAP) Pulse Ox O2 O2 Flow FiO2 Time Delivery Rate 02/17/19 90 13 152/76 95 Nasal 2.0 17:04 (101) Cannula 02/17/19 98.6 16:39 Intake and Output 02/16/19 02/16/19 02/17/19 1515:00 23:00 07:00 IntakeIntake Total 875 ml 300 ml 700 ml BalanceBalance 875 ml 300 ml 700 ml Exam Exam Review of Systems: CONSTITUTIONAL: No fevers, chills. PULMONARY: No sob CARDIOVASCULAR: No chest pain/palpitations GASTROINTESTINAL: abd pain GENITOURINARY: No hematuria/dysuria. MUSCULOSKELETAL: No myagias/arthalgias. PSYCHIATRIC: The patient denies depression. NEUROLOGIC: No weakness Constitutional: alert, oriented Psych: no complaints Head: normocephalic ENMT: mucosa pink and moist Neck: supple, jvd (8 cm water) Respiratory: diminished breath sounds (at bases/B) Cardiovascular: regular rate and rhythm Gastrointestinal: soft, non-tender, other Musculoskeletal: muscle tone (normal) Extremities: edema (none) Labs Result Diagram: 02/15/196 02/15/196 Results 24hrs Laboratory Tests Test 02/17/19 04:35 Prothrombin Time 14.0 Prothrombin Time Ratio 1.1 INR International Normalized Ratio 1.07 Medications Medications Current Medications IV Flush (NS 3 ml) 3 ml PER PROTOCOL IV ; Start 02/14/19 at 01:00 Ondansetron HCl (Zofran Inj) 4 mg Q6H PRN IV NAUSEA/VOMITING Last administered on 02/17/19 17:33; Admin Dose 4 MG; Start 02/14/19 at 01:00 Morphine Sulfate (morphine) 2 mg Q4H PRN IV .SEVERE PAIN 7-10 Last administered on 02/17/19 17:33; Admin Dose 2 MG; Start 02/14/19 at 01:00 Famotidine (Pepcid Iv) 20 mg Q12 IV Last administered on 02/17/19 09:03; Admin Dose 20 MG; Start 02/14/19 at 09:00 Heparin Sodium (Porcine) (Heparin (5000 Units/1ml)) 5,000 unit Q12 SC Last administered on 02/17/19 09:07; Admin Dose 5,000 UNIT; Start 02/14/19 at 09:00 Albuterol/ Ipratropium (Duoneb) 3 ml Q2H RESP THERAPY PRN HHN SHORTNESS OF BREATH; Start 02/14/19 at 01:00 Hydralazine HCl (Apresoline) 10 mg Q6H PRN IV BP >160 Last administered on 02/17/19 09:04; Admin Dose 10 MG; Start 02/14/19 at 10:30 Potassium Chloride/Dextrose/ Sod Cl 1,000 ml @ 100 mls/hr Q10H IV Last administered on 02/17/19 11:21; Admin Dose 100 MLS/HR; Start 02/14/19 at 11:30 Hydromorphone HCl (Dilaudid) 0.2 mg PACU PRN IV MILD PAIN 1-3; Start 02/17/19 at 16:30; Stop 02/17/19 at 20:30 Hydromorphone HCl (Dilaudid) 0.4 mg PACU PRN IV MOD PAIN 4-6; Start 02/17/19 at 16:30; Stop 02/17/19 at 20:30 Fentanyl (Sublimaze) 25 mcg PACU ORDER PRN IV MILD PAIN 1-3; Start 02/17/19 at 16:30; Stop 02/17/19 at 20:30 Ondansetron HCl (Zofran Inj) 4 mg PACU ORDER PRN IV NAUSEA/VOMITING; Start 02/17/19 at 16:30; Stop 02/17/19 at 20:30 Sodium Phosphate 15 mmol/Sodium Chloride 255 ml @ 63.75 mls/ hr ONCE ONCE IV ; Start 02/17/19 at 18:00; Stop 02/17/19 at 21:59 Acetaminophen (Tylenol Liquid) 650 mg Q4H PRN GTB MILD PAIN(1-3)OR ELEVATED TEMP; Start 02/17/19 at 17:00 Alprazolam (Xanax) 0.25 mg Q6H PRN GTB ANXIETY; Start 02/17/19 at 17:00 AUSTEN WONG Feb 17, 2019 18:02
[2019-02-17] MEDS: BENAZEPRIL 10 MG TAB PO SCH (21:07)
[2019-02-17] MEDS ORDERED: SOD CHLORIDE 0.9% 250 ML IV ONE ×2 (22:30)
[2019-02-18 01:50] VITALS: BP 139/82; PULSE 121; RESP 18
[2019-02-18] MEDS: ALPRAZOLAM 0.25 MG TAB GTB PRN ×2 (02:28→22:58)
[2019-02-18 03:07] VITALS: PULSE 106
[2019-02-18] MEDS: morphine 2 MG INJ IV PRN ×3 (05:04→23:17)
[2019-02-18] MEDS: D5W-0.45 NACL + KCL 20 MEQ 1,000 ML IV SCH ×3 (05:05→18:03)
[2019-02-18 07:19] VITALS: BP 104/57; PULSE 106; RESP 16
[2019-02-18] MEDS: BENAZEPRIL 10 MG TAB PO SCH ×2 (09:00→20:59)
[2019-02-18] MEDS: FAMOTIDINE 20 MG INJ IV SCH ×2 (09:24→20:59)
[2019-02-18] MEDS: HEPARIN 5,000 UNIT/1 ML VIAL SC SCH ×2 (09:27→21:00)
--- NOTE | 2019-02-18 12:16 | PN ---
Date/Time of Note Date/Time of Note DATE: 02/18/19 TIME: 12:12 Assessment/Plan VTE Prophylaxis Risk score (from Nsg)>0 risk: 8 SCD applied (from Ns): Yes SCD contraindicated: low risk/ambulating Pharmacological prophylaxis: NA/contraindicated Pharm contraindication: surgical contra Lines/Catheters IV Catheter Type (from [facility]): Peripheral IV Assessment/Plan Hospital Course Assessment and plan: 1. Moderate malnutrition status post PEG tube, Continue oral gratification feeds feasible 2. PEG tube status 3. Dysphagia, unknown etiology. Status post EGD. Appreciate GI assistance. 4. Carotid bulb tumor? Outpatient vascular for elective surgery 5. Thyroid nodule, will obtain ultrasound/laboratory assessment. Outpatient ENT or endocrine 6. Generalized anxiety disorder 7. 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 Chronic rheumatoid arthritis 9. Acute hypoxic respiratory failure, stable continue I-S albuterol supplemental oxygen. Chest chest x-ray 10. Sinus tachycardia possibly improved with fluids. We will also consider due to pain or refeeding syndrome Subjective: Lethargic but no distress. Tachycardia overnight improved with fluids? No fever. Tolerating present tube feeds. Hypoxia noted. Objective: Vital signs stable except sinus tach hypoxia Physical exam No pallor JVD adenopathy. Some bitemporal wasting Regular no murmur gallop Clear Bowel sounds diminished mild tender nondistended no RRG. PEG CDI No edema/Homans Result Diagram: 02/15/1944502/15/19445 Exam/Review of Systems Exam Vitals Vital Signs Date Temp Pulse Resp B/P (MAP) Pulse Ox O2 O2 Flow FiO2 Time Delivery Rate 02/18/19 Nasal 2.0 09:00 Cannula 02/18/19 98.1 106 16 104/57 96 07:19 (73) Intake and Output 02/17/19 02/17/19 02/18/19 1515:00 23:00 07:00 IntakeIntake Total 1000 ml 707 ml 846 ml BalanceBalance 1000 ml 707 ml 846 ml Medications Medication Current Medications IV Flush (NS 3 ml) 3 ml PER PROTOCOL IV ; Start 02/14/19 at 01:00 Ondansetron HCl (Zofran Inj) 4 mg Q6H PRN IV NAUSEA/VOMITING Last administered on 02/17/19at 17:33; Admin Dose 4 MG; Start 02/14/19 at 01:00 Morphine Sulfate (morphine) 2 mg Q4H PRN IV .SEVERE PAIN 7-10 Last administered on 02/18/19 05:04; Admin Dose 2 MG; Start 02/14/19 at 01:00 Famotidine (Pepcid Iv) 20 mg Q12 IV Last administered on 02/18/19 09:24; Admin Dose 20 MG; Start 02/14/19 at 09:00 Heparin Sodium (Porcine) (Heparin (5000 Units/1ml)) 5,000 unit Q12 SC Last administered on 02/18/19 09:27; Admin Dose 5,000 UNIT; Start 02/14/19 at 09:00 Albuterol/ Ipratropium (Duoneb) 3 ml Q2H RESP THERAPY PRN HHN SHORTNESS OF BREATH; Start 02/14/19 at 01:00 Hydralazine HCl (Apresoline) 10 mg Q6H PRN IV BP >160 Last administered on 02/17/19 09:04; Admin Dose 10 MG; Start 02/14/19 at 10:30 Potassium Chloride/Dextrose/ Sod Cl 1,000 ml @ 100 mls/hr Q10H IV Last administered on 02/18/19 05:05; Admin Dose 100 MLS/HR; Start 02/14/19 at 11:30 Acetaminophen (Tylenol Liquid) 650 mg Q4H PRN GTB MILD PAIN(1-3)OR ELEVATED TEMP; Start 02/17/19 at 17:00 Alprazolam (Xanax) 0.25 mg Q6H PRN GTB ANXIETY Last administered on 02/18/19 02:28; Admin Dose 0.25 MG; Start 02/17/19 at 17:00 Benazepril HCl (Lotensin) 10 mg BID PO Last administered on 02/17/19 21:07; Admin Dose 10 MG; Start 02/17/19 at 21:00 TETE WEAVER MD Feb 18, 2019 12:16
[2019-02-18] MEDS ORDERED: SOD CHLORIDE 0.9% 500 ML IV ONE (12:30)
[2019-02-18] MEDS ORDERED: ONDANSETRON 4 MG INJ IV PRN (12:30)
[2019-02-18] MEDS: METOCLOPRAMIDE 10 MG INJ IV SCH ×2 (12:39→18:05)
[2019-02-18] MEDS: LEVALBUTEROL (NEB) 0.63 MG/3 ML AMP HHN SCH ×2 (13:45→19:52)
[2019-02-18 14:04] VITALS: BP 124/80; PULSE 101; RESP 16
--- NOTE | 2019-02-18 17:24 | PN ---
Date/Time of Note Date/Time of Note DATE: 02/18/19 TIME: 17:20 Assessment/Plan VTE Prophylaxis Risk score (from Nsg)>0 risk: 8 SCD applied (from Nsg): Yes Pharmacological prophylaxis: heparin Lines/Catheters IV Catheter Type (from Nrsg): Peripheral IV Assessment/Plan Assessment/Plan Assessment: Dysphagia -PEG 02/17/19, enteral feeding initiated. 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 Continue IVF - mouth swabs NPO Will sign off, please call with questions. Patient seen in collaboration with Dr. Luo Subjective: Course reviewed with nursing staff Patient interviewed and examined All labs, imaging and other results reviewed No family at bedside, pt is comfortable, confused. Enteral feeding infusing uneventfully. PHYSICAL EXAMINATION: GENERAL: Cachectic, alert & oriented x 3, SKIN: No lesions EYES: Pupils equal reactive to light, no discharge. EARS/NOSE AND THROAT: Ears normal, nose normal, mouth NECK: Supple, no masses CHEST: Inspection within normal limits. CARDIOVASCULAR: Heart: Regular rate and rhythm RESPIRATORY: Lungs clear to auscultation GASTROINTESTINAL AND LIVER: Abdomen: Soft, sunken abd, non tenderness, non- distended, no hernias, no masses, no organomegaly, no ascites, no guarding, no rebound tenderness, normoactive bowel sounds. Rectal: Deferred. EXTREMITIES: No cyanosis, clubbing or edema. Result Diagram: 02/15/19 0446 02/15/19 044 CC: RONNI LUO ; Exam/Review of Systems Exam Vitals Vital Signs Date Temp Pulse Resp B/P (MAP) Pulse Ox O2 O2 Flow FiO2 Time Delivery Rate 02/18/19 97.9 101 16 124/80 97 Nasal 14:04 (95) Cannula 02/18/19 2.0 13:47 Intake and Output 02/17/19 02/17/19 02/18/19 1414:59 22:59 06:59 IntakeIntake Total 1000 ml 707 ml 846 ml BalanceBalance 1000 ml 707 ml 846 ml Medications Medication Current Medications IV Flush (NS 3 ml) 3 ml PER PROTOCOL IV ; Start 02/14/19 at 01:00 Morphine Sulfate (morphine) 2 mg Q4H PRN IV .SEVERE PAIN 7-10 Last administered on 02/18/19 05:04; Admin Dose 2 MG; Start 02/14/19 at 01:00 Famotidine (Pepcid Iv) 20 mg Q12 IV Last administered on 02/18/19 09:24; Admin Dose 20 MG; Start 02/14/19 at 09:00 Heparin Sodium (Porcine) (Heparin (5000 Units/1ml)) 5,000 unit Q12 SC Last administered on 02/18/19 09:27; Admin Dose 5,000 UNIT; Start 02/14/19 at 09:00 Albuterol/ Ipratropium (Duoneb) 3 ml Q2H RESP THERAPY PRN HHN SHORTNESS OF BREATH; Start 02/14/19 at 01:00 Hydralazine HCl (Apresoline) 10 mg Q6H PRN IV BP >160 Last administered on 02/17/19at 09:04; Admin Dose 10 MG; Start 02/14/19 at 10:30 Potassium Chloride/Dextrose/ Sod Cl 1,000 ml @ 100 mls/hr Q10H IV Last administered on 02/18/19 05:05; Admin Dose 100 MLS/HR; Start 02/14/19 at 11:30 Acetaminophen (Tylenol Liquid) 650 mg Q4H PRN GTB MILD PAIN(1-3)OR ELEVATED TEMP; Start 02/17/19 at 17:00 Alprazolam (Xanax) 0.25 mg Q6H PRN GTB ANXIETY Last administered on 02/18/19 02:28; Admin Dose 0.25 MG; Start 02/17/19 at 17:00 Benazepril HCl (Lotensin) 10 mg BID PO Last administered on 02/17/19 21:07; Admin Dose 10 MG; Start 02/17/19 at 21:00 Ondansetron HCl (Zofran Inj) 4 mg Q4H PRN IV NAUSEA/VOMITING; Start 02/18/19 at 12:30 Levalbuterol (Xopenex Neb) 0.63 mg Q6H RESP THERAPY HHN Last administered on 02/18/19at 13:45; Admin Dose 0.63 MG; Start 02/18/19 at 14:00 Metoclopramide HCl (Reglan) 5 mg Q6 IV Last administered on 02/18/19at 12:39; Admin Dose 5 MG; Start 02/18/19 at 12:30; Stop 02/19/19 at 13:00 LORA CORBETT NP Feb 18, 2019 17:24
--- NOTE | 2019-02-18 17:32 | CONS ---
Assessment/Plan Assessment/Plan Assessment/Plan (Daily) Failure to thrive. Hypertension. Abnormal electrocardiogram with right bundle branch block pattern, secondary repolarization abnormalities, left anterior fascicular block. Carotid body tumor. Rheumatoid arthritis. S/P G tube Continue Benazepril Continue famotidine Continue Heparin Consultation Date/Type/Reason Admit Date/Time Feb 13, 2019 at 23:02 Type of Consult Cardiology Date/Time of Note DATE: 02/18/19 TIME: 17:30 Past Medical History Home Meds Reported Medications Methotrexate* (Methotrexate*) 2.5 Mg Tab, 7.5 MG PO MONTHLY, TAB 02/14/19 Alprazolam* (Alprazolam*) 0.25 Mg Tablet, 0.25 MG PO TID PRN for ANXIETY, TAB 02/14/19 Hydroxyzine Hcl* (Hydroxyzine Hcl*) 10 Mg Tablet, 10 MG PO Q6H PRN for ITCHING, #30 TAB 02/14/19 Hydrocodone/Acetaminophen ([place] 5-325 Tablet) 1 Each Tablet, 1 EACH PO Q6H PRN for PAIN LEVEL 6-10, TAB 02/14/19 Medications Current Medications IV Flush (NS 3 ml) 3 ml PER PROTOCOL IV ; Start 02/14/19 at 01:00 Morphine Sulfate (morphine) 2 mg Q4H PRN IV .SEVERE PAIN 7-10 Last administered on 02/18/19at 05:04; Admin Dose 2 MG; Start 02/14/19 at 01:00 Famotidine (Pepcid Iv) 20 mg Q12 IV Last administered on 02/18/19at 09:24; Admin Dose 20 MG; Start 02/14/19 at 09:00 Heparin Sodium (Porcine) (Heparin (5000 Units/1ml)) 5,000 unit Q12 SC Last administered on 02/18/19at 09:27; Admin Dose 5,000 UNIT; Start 02/14/19 at 09:00 Albuterol/ Ipratropium (Duoneb) 3 ml Q2H RESP THERAPY PRN HHN SHORTNESS OF BREATH; Start 02/14/19 at 01:00 Hydralazine HCl (Apresoline) 10 mg Q6H PRN IV BP >160 Last administered on 02/17/19at 09:04; Admin Dose 10 MG; Start 02/14/19 at 10:30 Potassium Chloride/Dextrose/ Sod Cl 1,000 ml @ 100 mls/hr Q10H IV Last administered on 02/18/19at 05:05; Admin Dose 100 MLS/HR; Start 02/14/19 at 11:30 Acetaminophen (Tylenol Liquid) 650 mg Q4H PRN GTB MILD PAIN(1-3)OR ELEVATED TEMP; Start 02/17/19 at 17:00 Alprazolam (Xanax) 0.25 mg Q6H PRN GTB ANXIETY Last administered on 02/18/19at 02:28; Admin Dose 0.25 MG; Start 02/17/19 at 17:00 Benazepril HCl (Lotensin) 10 mg BID PO Last administered on 02/17/19at 21:07; Admin Dose 10 MG; Start 02/17/19 at 21:00 Ondansetron HCl (Zofran Inj) 4 mg Q4H PRN IV NAUSEA/VOMITING; Start 02/18/19 at 12:30 Levalbuterol (Xopenex Neb) 0.63 mg Q6H RESP THERAPY HHN Last administered on 02/18/19at 13:45; Admin Dose 0.63 MG; Start 02/18/19 at 14:00 Metoclopramide HCl (Reglan) 5 mg Q6 IV Last administered on 02/18/19at 12:39; Admin Dose 5 MG; Start 02/18/19 at 12:30; Stop 02/19/19 at 13:00 Allergies: Coded Allergies: No Known Drug Allergy (Verified Allergy, Unknown, 02/13/19) Social History Smoking Status: Never smoker Exam/Review of Systems Vital Signs Vitals Vital Signs Date Temp Pulse Resp B/P (MAP) Pulse Ox O2 O2 Flow FiO2 Time Delivery Rate 02/18/19 97.9 101 16 124/80 97 Nasal 14:04 (95) Cannula 02/18/19 2.0 13:47 Intake and Output 02/17/19 02/17/19 02/18/19 1515:00 23:00 07:00 IntakeIntake Total 1000 ml 707 ml 846 ml BalanceBalance 1000 ml 707 ml 846 ml Exam Head: normocephalic, atraumatic Respiratory: clear to auscultation Cardiovascular: regular rate and rhythm (no m/r/g) Gastrointestinal: soft, nl liver, spleen Extremities: normal pulses Labs Result Diagram: 02/15/1944502/15/19445 Medications Medications Current Medications IV Flush (NS 3 ml) 3 ml PER PROTOCOL IV ; Start 02/14/19 at 01:00 Morphine Sulfate (morphine) 2 mg Q4H PRN IV .SEVERE PAIN 7-10 Last administered on 02/18/19 05:04; Admin Dose 2 MG; Start 02/14/19 at 01:00 Famotidine (Pepcid Iv) 20 mg Q12 IV Last administered on 02/18/19at 09:24; Admin Dose 20 MG; Start 02/14/19 at 09:00 Heparin Sodium (Porcine) (Heparin (5000 Units/1ml)) 5,000 unit Q12 SC Last administered on 02/18/19at 09:27; Admin Dose 5,000 UNIT; Start 02/14/19 at 09:00 Albuterol/ Ipratropium (Duoneb) 3 ml Q2H RESP THERAPY PRN HHN SHORTNESS OF BREATH; Start 02/14/19 at 01:00 Hydralazine HCl (Apresoline) 10 mg Q6H PRN IV BP >160 Last administered on 02/17/19at 09:04; Admin Dose 10 MG; Start 02/14/19 at 10:30 Potassium Chloride/Dextrose/ Sod Cl 1,000 ml @ 100 mls/hr Q10H IV Last administered on 02/18/19at 05:05; Admin Dose 100 MLS/HR; Start 02/14/19 at 11:30 Acetaminophen (Tylenol Liquid) 650 mg Q4H PRN GTB MILD PAIN(1-3)OR ELEVATED TEMP; Start 02/17/19 at 17:00 Alprazolam (Xanax) 0.25 mg Q6H PRN GTB ANXIETY Last administered on 02/18/19at 02:28; Admin Dose 0.25 MG; Start 02/17/19 at 17:00 Benazepril HCl (Lotensin) 10 mg BID PO Last administered on 02/17/19at 21:07; Admin Dose 10 MG; Start 02/17/19 at 21:00 Ondansetron HCl (Zofran Inj) 4 mg Q4H PRN IV NAUSEA/VOMITING; Start 02/18/19 at 12:30 Levalbuterol (Xopenex Neb) 0.63 mg Q6H RESP THERAPY HHN Last administered on 02/18/19at 13:45; Admin Dose 0.63 MG; Start 02/18/19 at 14:00 Metoclopramide HCl (Reglan) 5 mg Q6 IV Last administered on 02/18/19at 12:39; Admin Dose 5 MG; Start 02/18/19 at 12:30; Stop 02/19/19 at 13:00 REINA HALL M.D. Feb 18, 2019 17:32
[2019-02-18 20:10] VITALS: BP 124/56; PULSE 105; RESP 16
[2019-02-19] MEDS: METOCLOPRAMIDE 10 MG INJ IV SCH ×3 (00:30→12:16)
[2019-02-19] MEDS: D5W-0.45 NACL + KCL 20 MEQ 1,000 ML IV SCH ×3 (01:30→14:37)
[2019-02-19] MEDS: LEVALBUTEROL (NEB) 0.63 MG/3 ML AMP HHN SCH ×3 (01:44→16:00)
[2019-02-19 02:00] VITALS: BP 140/86; PULSE 98; RESP 16
[2019-02-19 07:27] VITALS: BP 139/61; PULSE 101; RESP 18
[2019-02-19] MEDS: FAMOTIDINE 20 MG INJ IV SCH ×2 (09:22→20:48)
[2019-02-19] MEDS: BENAZEPRIL 10 MG TAB PO SCH (09:22)
[2019-02-19] MEDS: HEPARIN 5,000 UNIT/1 ML VIAL SC SCH ×2 (09:24→20:57)
--- NOTE | 2019-02-19 14:35 | PN ---
Date/Time of Note Date/Time of Note DATE: 02/19/19 TIME: 14:31 Assessment/Plan VTE Prophylaxis Risk score (from Ns)>0 risk: 6 SCD applied (from Ns): Yes SCD contraindicated: low risk/ambulating Pharmacological prophylaxis: LMWH Lines/Catheters IV [facility] (from [facility] Peripheral IV Assessment/Plan Hospital Course Assessment and plan: 1. Moderate malnutrition, status post PEG tube, Continue oral gratification feeds if feasible & tube feeds 2. PEG tube status 3. Dysphagia, unknown etiology. Status post EGD. f/u wGI 4. Carotid bulb tumor? Outpatient appt Dr Brown for elective surgery 5. Thyroid nodule, sp ultrasound. Outpatient ENT or endocrine 6. Generalized anxiety disorder 7. 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 Chronic rheumatoid arthritis 9. Acute hypoxic respiratory failure, stable continue IS albuterol supplemental oxygen. sp cxr; effusion noted, will decrease IVf. If fever or leukocytosis returns consider aspiration 10. Sinus tachycardia possibly improved with fluids. Will also consider due to pain 11. Pl effusion possibly hypoalbuminemia/third spacing, decrease IV fluids S: 02/18 lethargic but no distress. Tachycardia overnight improved with fluids? No fever. Tolerating present tube feeds. Hypoxia noted.: Events noted Objective: Vital signs stable except sinus tach hypoxia PE No pallor JVD. bitemporal wasting? Regular no m/r/g Clear Bs dimin mild tender nd no R/R/G. PEG C/D/I No edema/Homans Result Diagram: 02/19/19 0508 02/19/19 0508 Results 24hrs Laboratory Tests Test 02/19/19 05:08 White Blood Count 10.2 Red Blood Count 4.05 L Hemoglobin 13.3 Hematocrit 39.9 Mean Corpuscular Volume 98.5 Mean Corpuscular Hemoglobin 32.8 Mean Corpuscular Hemoglobin Concent 33.3 Red Cell Distribution Width 15.0 H Platelet Count 152 Mean Platelet Volume 10.7 H Immature Granulocytes % 0.300 Neutrophils % 87.3 H Lymphocytes % 6.3 L Monocytes % 6.0 Eosinophils % 0.0 Basophils % 0.1 Nucleated Red Blood Cells % 0.0 Immature Granulocytes # 0.030 Neutrophils # 8.9 H Lymphocytes # 0.6 L Monocytes # 0.6 Eosinophils # 0.0 Basophils # 0.0 Nucleated Red Blood Cells # 0.0 Sodium Level 138 Potassium Level 4.2 Chloride Level 101 Carbon Dioxide Level 37 H Anion Gap 0 L Blood Urea Nitrogen 6 L Creatinine 0.19 L Est Glomerular Filtrat Rate mL/min Glucose Level 141 Calcium Level 9.3 Phosphorus Level 1.8 L Magnesium Level 1.9 Total Bilirubin 0.5 Direct Bilirubin 0.00 Indirect Bilirubin 0.5 Aspartate Amino Transf (AST/SGOT) 21 Alanine Aminotransferase (ALT/SGPT) 31 Alkaline Phosphatase 48 Total Protein 5.5 L Albumin 2.8 L Globulin 2.70 Albumin/Globulin Ratio 1.03 Free Thyroxine 0.95 Total Triiodothyronine 0.68 L Exam/Review of Systems Exam Vitals Vital Signs Date Temp Pulse Resp B/P (MAP) Pulse Ox O2 O2 Flow FiO2 Time Delivery Rate 02/19/19 100 20 96 Nasal 2.0 08:42 Cannula 02/19/19 97.6 139/61 07:27 (87) Intake and Output 02/18/19 02/18/19 02/19/19 1515:00 23:00 07:00 IntakeIntake Total 1200 ml 640 ml 1100 ml BalanceBalance 1200 ml 640 ml 1100 ml Results Results 24hrs Laboratory Tests Test 02/19/19 05:08 White Blood Count 10.2 Red Blood Count 4.05 L Hemoglobin 13.3 Hematocrit 39.9 Mean Corpuscular Volume 98.5 Mean Corpuscular Hemoglobin 32.8 Mean Corpuscular Hemoglobin Concent 33.3 Red Cell Distribution Width 15.0 H Platelet Count 152 Mean Platelet Volume 10.7 H Immature Granulocytes % 0.300 Neutrophils % 87.3 H Lymphocytes % 6.3 L Monocytes % 6.0 Eosinophils % 0.0 Basophils % 0.1 Nucleated Red Blood Cells % 0.0 Immature Granulocytes # 0.030 Neutrophils # 8.9 H Lymphocytes # 0.6 L Monocytes # 0.6 Eosinophils # 0.0 Basophils # 0.0 Nucleated Red Blood Cells # 0.0 Sodium Level 138 Potassium Level 4.2 Chloride Level 101 Carbon Dioxide Level 37 H Anion Gap 0 L Blood Urea Nitrogen 6 L Creatinine 0.19 L Est Glomerular Filtrat Rate mL/min Glucose Level 141 Calcium Level 9.3 Phosphorus Level 1.8 L Magnesium Level 1.9 Total Bilirubin 0.5 Direct Bilirubin 0.00 Indirect Bilirubin 0.5 Aspartate Amino Transf (AST/SGOT) 21 Alanine Aminotransferase (ALT/SGPT) 31 Alkaline Phosphatase 48 Total Protein 5.5 L Albumin 2.8 L Globulin 2.70 Albumin/Globulin Ratio 1.03 Free Thyroxine 0.95 Total Triiodothyronine 0.68 L Medications Medication Current Medications IV Flush (NS 3 ml) 3 ml PER PROTOCOL IV ; Start 02/14/19 at 01:00 Morphine Sulfate (morphine) 2 mg Q4H PRN IV .SEVERE PAIN 7-10 Last administered on 02/18/19 23:17; Admin Dose 2 MG; Start 02/14/19 at 01:00 Famotidine (Pepcid Iv) 20 mg Q12 IV Last administered on 02/19/19 09:22; Admin Dose 20 MG; Start 02/14/19 at 09:00 Heparin Sodium (Porcine) (Heparin (5000 Units/1ml)) 5,000 unit Q12 SC Last administered on 02/19/19 09:24; Admin Dose 5,000 UNIT; Start 02/14/19 at 09:00 Albuterol/ Ipratropium (Duoneb) 3 ml Q2H RESP THERAPY PRN HHN SHORTNESS OF BREATH; Start 02/14/19 at 01:00 Hydralazine HCl (Apresoline) 10 mg Q6H PRN IV BP >160 Last administered on 02/17/19 09:04; Admin Dose 10 MG; Start 02/14/19 at 10:30 Potassium Chloride/Dextrose/ Sod Cl 1,000 ml @ 50 mls/hr Q20H IV Last administered on 02/19/19 04:14; Admin Dose 100 MLS/HR; Start 02/14/19 at 11:30 Acetaminophen (Tylenol Liquid) 650 mg Q4H PRN GTB MILD PAIN(1-3)OR ELEVATED TEMP Last administered on 02/19/19 12:17; Admin Dose 650 MG; Start 02/17/19 at 17:00 Alprazolam (Xanax) 0.25 mg Q6H PRN GTB ANXIETY Last administered on 02/18/19 22:58; Admin Dose 0.25 MG; Start 02/17/19 at 17:00 Benazepril HCl (Lotensin) 10 mg BID PO Last administered on 02/19/19 09:22; Admin Dose 10 MG; Start 02/17/19 at 21:00 Ondansetron HCl (Zofran Inj) 4 mg Q4H PRN IV NAUSEA/VOMITING; Start 02/18/19 at 12:30 Levalbuterol (Xopenex Neb) 0.63 mg Q6H RESP THERAPY HHN Last administered on 02/19/19at 08:42; Admin Dose 0.63 MG; Start 02/18/19 at 14:00 Acetaminophen/ Aspirin/Caffeine (Excedrin) 1 tab BID PRN PO HEADACHE; Start 02/19/19 at 14:30; Status TETE CONWAY MD Feb 19, 2019 14:35
[2019-02-19 14:36] VITALS: BP 156/67; PULSE 96; RESP 18
--- NOTE | 2019-02-19 14:45 | CONS ---
Assessment/Plan Assessment/Plan Assessment/Plan (Daily) Failure to thrive. Hypertension. Abnormal electrocardiogram with right bundle branch block pattern, secondary repolarization abnormalities, left anterior fascicular block. Carotid body tumor. Rheumatoid arthritis. S/P G tube Continue Benazepril Continue famotidine Continue Heparin Consultation Date/Type/Reason Admit Date/Time Feb 13, 2019 at 23:02 Initial Consult Date 02/14/19 Type of Consult Cardiology Requesting Provider: JAKE MCDERMOTT MD Date/Time of Note DATE: 02/19/19 TIME: 14:44 Exam/Review of Systems Vital Signs Vitals Vital Signs Date Temp Pulse Resp B/P (MAP) Pulse Ox O2 O2 Flow FiO2 Time Delivery Rate 02/19/19 98.1 96 18 156/67 99 14:36 (96) 02/19/19 Nasal 2.0 08:42 Cannula Intake and Output 02/18/19 02/18/19 02/19/19 1414:59 22:59 06:59 IntakeIntake Total 1200 ml 640 ml 1100 ml BalanceBalance 1200 ml 640 ml 1100 ml Exam Exam Head: normocephalic, atraumatic Respiratory: clear to auscultation Cardiovascular: regular rate and rhythm (no m/r/g) Gastrointestinal: soft, nl liver, spleen Extremities: normal pulses Labs Result Diagram: 02/19/19 0508 02/19/19 0508 Results 24hrs Laboratory Tests Test 02/19/19 05:08 White Blood Count 10.2 Red Blood Count 4.05 L Hemoglobin 13.3 Hematocrit 39.9 Mean Corpuscular Volume 98.5 Mean Corpuscular Hemoglobin 32.8 Mean Corpuscular Hemoglobin Concent 33.3 Red Cell Distribution Width 15.0 H Platelet Count 152 Mean Platelet Volume 10.7 H Immature Granulocytes % 0.300 Neutrophils % 87.3 H Lymphocytes % 6.3 L Monocytes % 6.0 Eosinophils % 0.0 Basophils % 0.1 Nucleated Red Blood Cells % 0.0 Immature Granulocytes # 0.030 Neutrophils # 8.9 H Lymphocytes # 0.6 L Monocytes # 0.6 Eosinophils # 0.0 Basophils # 0.0 Nucleated Red Blood Cells # 0.0 Sodium Level 138 Potassium Level 4.2 Chloride Level 101 Carbon Dioxide Level 37 H Anion Gap 0 L Blood Urea Nitrogen 6 L Creatinine 0.19 L Est Glomerular Filtrat Rate mL/min Glucose Level 141 Calcium Level 9.3 Phosphorus Level 1.8 L Magnesium Level 1.9 Total Bilirubin 0.5 Direct Bilirubin 0.00 Indirect Bilirubin 0.5 Aspartate Amino Transf (AST/SGOT) 21 Alanine Aminotransferase (ALT/SGPT) 31 Alkaline Phosphatase 48 Total Protein 5.5 L Albumin 2.8 L Globulin 2.70 Albumin/Globulin Ratio 1.03 Free Thyroxine 0.95 Total Triiodothyronine 0.68 L Medications Medications Current Medications IV Flush (NS 3 ml) 3 ml PER PROTOCOL IV ; Start 02/14/19 at 01:00 Morphine Sulfate (morphine) 2 mg Q4H PRN IV .SEVERE PAIN 7-10 Last administered on 02/18/19 23:17; Admin Dose 2 MG; Start 02/14/19 at 01:00 Famotidine (Pepcid Iv) 20 mg Q12 IV Last administered on 02/19/19 09:22; Admin Dose 20 MG; Start 02/14/19 at 09:00 Heparin Sodium (Porcine) (Heparin (5000 Units/1ml)) 5,000 unit Q12 SC Last administered on 02/19/19 09:24; Admin Dose 5,000 UNIT; Start 02/14/19 at 09:00 Albuterol/ Ipratropium (Duoneb) 3 ml Q2H RESP THERAPY PRN HHN SHORTNESS OF BREATH; Start 02/14/19 at 01:00 Hydralazine HCl (Apresoline) 10 mg Q6H PRN IV BP >160 Last administered on 02/17/19 09:04; Admin Dose 10 MG; Start 02/14/19 at 10:30 Potassium Chloride/Dextrose/ Sod Cl 1,000 ml @ 50 mls/hr Q20H IV Last administered on 02/19/19 14:37; Admin Dose 50 MLS/HR; Start 02/14/19 at 11:30 Acetaminophen (Tylenol Liquid) 650 mg Q4H PRN GTB MILD PAIN(1-3)OR ELEVATED TEMP Last administered on 02/19/19 12:17; Admin Dose 650 MG; Start 02/17/19 at 17:00 Alprazolam (Xanax) 0.25 mg Q6H PRN GTB ANXIETY Last administered on 02/18/19 22:58; Admin Dose 0.25 MG; Start 02/17/19 at 17:00 Benazepril HCl (Lotensin) 10 mg BID PO Last administered on 02/19/19at 09:22; Admin Dose 10 MG; Start 02/17/19 at 21:00 Ondansetron HCl (Zofran Inj) 4 mg Q4H PRN IV NAUSEA/VOMITING; Start 02/18/19 at 12:30 Acetaminophen/ Aspirin/Caffeine (Excedrin) 1 tab BID PRN PO HEADACHE; Start 02/19/19 at 15:30 Levalbuterol (Xopenex Neb) 0.63 mg Q8H RESP THERAPY HHN ; Start 02/19/19 at 16:00 Docusate Sodium (Colace) 100 mg DAILY PO ; Start 02/20/19 at 09:00 REINA HALL M.D. Feb 19, 2019 14:45
[2019-02-19] MEDS: morphine 2 MG INJ IV PRN (19:49)
[2019-02-19 20:04] VITALS: BP 163/71; PULSE 92; RESP 16
[2019-02-19 20:45] VITALS: BP 174/78; PULSE 103
[2019-02-19] MEDS: hydrALAzine 20 MG INJ IV PRN (20:48)
[2019-02-19 22:22] VITALS: BP 115/55; PULSE 99
[2019-02-20] MEDS: LEVALBUTEROL (NEB) 0.63 MG/3 ML AMP HHN SCH ×3 (00:10→16:16)
[2019-02-20] MEDS: BENAZEPRIL 10 MG TAB PO SCH ×3 (01:29→21:11)
[2019-02-20 02:00] VITALS: BP 143/65; PULSE 105; RESP 16
[2019-02-20] MEDS: ALBUTEROL/IPRATROPIUM (NEB) 3 ML AMP HHN PRN (04:29)
[2019-02-20] MEDS: D5W-0.45 NACL + KCL 20 MEQ 1,000 ML IV SCH (05:39)
[2019-02-20 08:00] VITALS: BP 161/72; PULSE 87; RESP 16
[2019-02-20] MEDS ORDERED: DOCUSATE SODIUM 100 MG CAP PO SCH (09:00)
[2019-02-20] MEDS: FAMOTIDINE 20 MG INJ IV SCH (09:13)
[2019-02-20] MEDS: HEPARIN 5,000 UNIT/1 ML VIAL SC SCH ×2 (09:16→21:15)
[2019-02-20] MEDS: ASA/ACETAMINOPHEN/CAFF TAB PO PRN (09:18)
--- NOTE | 2019-02-20 10:35 | PN ---
Date/Time of Note Date/Time of Note DATE: 02/20/19 TIME: 10:15 Assessment/Plan VTE Prophylaxis Risk score (from Nsg)>0 risk: 6 SCD applied (from Nsg): Yes Pharmacological prophylaxis: LMWH Lines/Catheters IV Catheter Type (from Nrsg): Peripheral IV Assessment/Plan Hospital Course S: patient states she's doing better, she doesn;t want any more interventions O: General: alert, answers questions appropriately with aphasic speech and evidence of chronic cognitive deficits, cachectic, elderly HEENT: NC/ AT. PERRL. EOM intact CVS: tachycardia . no pain on chest wall palpation Lungs: CTA b/l. no wheezing or rhonchi Abd: abd binder in place, non tender Ext: moving all extremities skin: no rashes Assessment and plan: 1. Moderate malnutrition, status post PEG tube, Continue oral gratification feeds if feasible & tube feeds 2. PEG tube status 3. Dysphagia, unknown etiology. Status post EGD. f/u wGI 4. Carotid bulb tumor? Outpatient appt Dr Brown for further workup 5. Thyroid nodule, sp ultrasound. needs serial yearly monitoring 6. Generalized anxiety disorder: chronic, stable 7. 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 Chronic rheumatoid arthritis 9. Acute hypoxic respiratory failure with highly probable aspiration pneumonia: begin empiric abx 10. Sinus tachycardia possibly improved with fluids. Will also consider due to pain, r/o PE, DVT DIspo: begin dc planning, SNF versus home Result Diagram: 02/20/19 0513 02/20/19 0513 Results 24hrs Laboratory Tests Test 02/20/19 05:13 White Blood Count 8.3 Red Blood Count 4.13 L Hemoglobin 13.4 Hematocrit 39.8 Mean Corpuscular Volume 96.4 Mean Corpuscular Hemoglobin 32.4 Mean Corpuscular Hemoglobin Concent 33.7 Red Cell Distribution Width 14.6 H Platelet Count 179 Mean Platelet Volume 10.8 H Immature Granulocytes % 0.400 Neutrophils % 86.5 H Lymphocytes % 6.8 L Monocytes % 6.2 Eosinophils % 0.0 Basophils % 0.1 Nucleated Red Blood Cells % 0.0 Immature Granulocytes # 0.030 Neutrophils # 7.2 Lymphocytes # 0.6 L Monocytes # 0.5 Eosinophils # 0.0 Basophils # 0.0 Nucleated Red Blood Cells # 0.0 Sodium Level 134 L Potassium Level 4.1 Chloride Level 95 L Carbon Dioxide Level 39 H Anion Gap 0 L Blood Urea Nitrogen 10 Creatinine 0.18 L Est Glomerular Filtrat Rate mL/min Glucose Level 152 Calcium Level 9.2 Phosphorus Level 1.2 L Magnesium Level 1.9 Exam/Review of Systems Exam Vitals Vital Signs Date Temp Pulse Resp B/P (MAP) Pulse Ox O2 O2 Flow FiO2 Time Delivery Rate 02/20/19 101 19 95 Nasal 3.0 08:04 Cannula 02/20/19 98.9 161/72 08:00 (101) Intake and Output 02/19/19 02/19/19 02/20/19 1515:00 23:00 07:00 IntakeIntake Total 900 ml 175 ml 650 ml BalanceBalance 900 ml 175 ml 650 ml Results Results 24hrs Laboratory Tests Test 02/20/19 05:13 White Blood Count 8.3 Red Blood Count 4.13 L Hemoglobin 13.4 Hematocrit 39.8 Mean Corpuscular Volume 96.4 Mean Corpuscular Hemoglobin 32.4 Mean Corpuscular Hemoglobin Concent 33.7 Red Cell Distribution Width 14.6 H Platelet Count 179 Mean Platelet Volume 10.8 H Immature Granulocytes % 0.400 Neutrophils % 86.5 H Lymphocytes % 6.8 L Monocytes % 6.2 Eosinophils % 0.0 Basophils % 0.1 Nucleated Red Blood Cells % 0.0 Immature Granulocytes # 0.030 Neutrophils # 7.2 Lymphocytes # 0.6 L Monocytes # 0.5 Eosinophils # 0.0 Basophils # 0.0 Nucleated Red Blood Cells # 0.0 Sodium Level 134 L Potassium Level 4.1 Chloride Level 95 L Carbon Dioxide Level 39 H Anion Gap 0 L Blood Urea Nitrogen 10 Creatinine 0.18 L Est Glomerular Filtrat Rate mL/min Glucose Level 152 Calcium Level 9.2 Phosphorus Level 1.2 L Magnesium Level 1.9 Medications Medication Current Medications IV Flush (NS 3 ml) 3 ml PER PROTOCOL IV ; Start 02/14/19 at 01:00 Morphine Sulfate (morphine) 2 mg Q4H PRN IV .SEVERE PAIN 7-10 Last administered on 02/19/19at 19:49; Admin Dose 2 MG; Start 02/14/19 at 01:00 Famotidine (Pepcid Iv) 20 mg Q12 IV Last administered on 02/20/19at 09:13; Admin Dose 20 MG; Start 02/14/19 at 09:00 Heparin Sodium (Porcine) (Heparin (5000 Units/1ml)) 5,000 unit Q12 SC Last administered on 02/20/19 09:16; Admin Dose 5,000 UNIT; Start 02/14/19 at 09:00 Albuterol/ Ipratropium (Duoneb) 3 ml Q2H RESP THERAPY PRN HHN SHORTNESS OF BREATH Last administered on 02/20/19 04:29; Admin Dose 3 ML; Start 02/14/19 at 01:00 Hydralazine HCl (Apresoline) 10 mg Q6H PRN IV BP >160 Last administered on 02/19/19 20:48; Admin Dose 10 MG; Start 02/14/19 at 10:30 Potassium Chloride/Dextrose/ Sod Cl 1,000 ml @ 50 mls/hr Q20H IV Last administered on 02/19/19 14:37; Admin Dose 50 MLS/HR; Start 02/14/19 at 11:30 Acetaminophen (Tylenol Liquid) 650 mg Q4H PRN GTB MILD PAIN(1-3)OR ELEVATED TEMP Last administered on 02/19/19 12:17; Admin Dose 650 MG; Start 02/17/19 at 17:00 Alprazolam (Xanax) 0.25 mg Q6H PRN GTB ANXIETY Last administered on 02/18/19 2 2:58; Admin Dose 0.25 MG; Start 02/17/19 at 17:00 Benazepril HCl (Lotensin) 10 mg BID PO Last administered on 02/20/19 09:13; Admin Dose 10 MG; Start 02/17/19 at 21:00 Ondansetron HCl (Zofran Inj) 4 mg Q4H PRN IV NAUSEA/VOMITING; Start 02/18/19 at 12:30 Acetaminophen/ Aspirin/Caffeine (Excedrin) 1 tab BID PRN PO HEADACHE Last administered on 02/20/19 09:18; Admin Dose 1 TAB; Start 02/19/19 at 15:30 Levalbuterol (Xopenex Neb) 0.63 mg Q8H RESP THERAPY HHN Last administered on 02/20/19 08:04; Admin Dose 0.63 MG; Start 02/19/19 at 16:00 Docusate Sodium (Colace) 100 mg DAILY PO Last administered on 02/20/19at 09:13; Admin Dose 100 MG; Start 02/20/19 at 09:00 JORDYN PAULINO Feb 20, 2019 10:25
[2019-02-20] MEDS ORDERED: SODIUM PHOSPHATE 15 MMOL in SOD CHLORIDE 0.9% 250 ML IVPB ONE (11:30)
--- NOTE | 2019-02-20 15:04 | HP ---
DATE OF ADMISSION: 02/13/2019 Ms. Szymanski is a 78-year-old female with history dysphagia. She is n.p.o. at this time wi th tube feeds. ENT was consulted to evaluate her swallowing. On examination today, her septum is mildly deviated to the right and there is crusting bilaterally. Oral cavity and pharynx show tongue, floor of mouth normal. Oropharynx is without lesion. NECK: Reveals no lymphadenopathy or thyromegaly. Trachea is midline. PHYSICAL EXAMINATION: Endoscopy through the left nasal cavity shows the nasopharynx to be clear. Th e base of tongue is symmetric. Vallecula is open. Epiglottis normal. Vocal cords are moving quite well. I do not see any lesions whatsoever. IMPRESSION: Dysphagia, deviated septum. PLAN: At this point, I see no masses, lumps, or lesions whatsoever. If there are questions or coreen rns, please free to reconsult at any time. Dictated By: MARTIN GEORGE MD DM/NTS Conf#: [id number] DID#: [id number] CC: LUIS PEREZ MD;*EndCC*
[2019-02-20 15:08] VITALS: BP 165/78; PULSE 100; RESP 14
[2019-02-20 18:36] VITALS: BP 159/73; PULSE 101
[2019-02-20] MEDS: METOPROLOL (XL) 25 MG TAB PO SCH (18:40)
[2019-02-20 19:15] VITALS: BP 164/76; PULSE 100; RESP 16
--- NOTE | 2019-02-20 19:27 | CONS ---
Assessment/Plan Assessment/Plan Hospital Course (Demo Recall) IMPRESSION: 1. Preoperative evaluation prior to placement of a PEG tube for dysphagia, failure to thrive.-neg trop x 3/NL EF by echo with no sig valve abnl 2. Failure to thrive. 3. Hypertension. 4. Abnormal electrocardiogram with right bundle branch block pattern, secondary repolarization abnormalities, left anterior fascicular block. 5. Carotid body tumor. 6. Generalized wasting and cachexia. 7. Anxiety. 8. Rheumatoid arthritis. Recc: -OK to proceed to PEG placement at moderate cv risk without further noninvasive evaluation. Now post-op s/p G tube this admit -uptitrate antihypertensives to improve BP control and has been started on BB today given tachycardia as well -Continue abx's and f/u cx data Consultation Date/Type/Reason Admit Date/Time Feb 13, 2019 at 23:02 Initial Consult Date 02/14/19 Type of Consult Cardiology Reason for Consultation HTN/preop Requesting Provider: JAKE MCDERMOTT MD Date/Time of Note DATE: 02/20/19 TIME: 19:25 Exam/Review of Systems Vital Signs Vitals Vital Signs Date Temp Pulse Resp B/P (MAP) Pulse Ox O2 O2 Flow FiO2 Time Delivery Rate 02/20/19 101 159/73 18:36 (101) 02/20/19 18 96 Nasal 3.0 16:17 Cannula 02/20/19 98.3 15:08 Intake and Output 02/19/19 02/19/19 02/20/19 1515:00 23:00 07:00 IntakeIntake Total 900 ml 175 ml 650 ml BalanceBalance 900 ml 175 ml 650 ml Exam Exam Review of Systems: CONSTITUTIONAL: No fevers, chills. PULMONARY: No sob CARDIOVASCULAR: No chest pain/palpitations GASTROINTESTINAL: No nausea/vomiting. GENITOURINARY: No hematuria/dysuria. MUSCULOSKELETAL: No myagias/arthalgias. PSYCHIATRIC: The patient denies depression. NEUROLOGIC: No weakness Constitutional: alert Psych: no complaints Head: normocephalic ENMT: mucosa pink and moist Neck: supple, jvd (9 cm water) Respiratory: diminished breath sounds (at bases/B) Cardiovascular: regular rate and rhythm Gastrointestinal: soft, non-tender Musculoskeletal: muscle tone (norml) Extremities: edema (none) 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: other (No focal deficits) Labs Result Diagram: 4/15/19 0513 02/20/19 0513 Results 24hrs Laboratory Tests Test 02/20/19 05:13 02/20/19 15:06 02/20/19 18:00 White Blood Count 8.3 Red Blood Count 4.13 L Hemoglobin 13.4 Hematocrit 39.8 Mean Corpuscular Volume 96.4 Mean Corpuscular Hemoglobin 32.4 Mean Corpuscular Hemoglobin Concent 33.7 Red Cell Distribution Width 14.6 H Platelet Count 179 Mean Platelet Volume 10.8 H Immature Granulocytes % 0.400 Neutrophils % 86.5 H Lymphocytes % 6.8 L Monocytes % 6.2 Eosinophils % 0.0 Basophils % 0.1 Nucleated Red Blood Cells % 0.0 Immature Granulocytes # 0.030 Neutrophils # 7.2 Lymphocytes # 0.6 L Monocytes # 0.5 Eosinophils # 0.0 Basophils # 0.0 Nucleated Red Blood Cells # 0.0 Sodium Level 134 L Potassium Level 4.1 Chloride Level 95 L Carbon Dioxide Level 39 H Anion Gap 0 L Blood Urea Nitrogen 10 Creatinine 0.18 L Est Glomerular Filtrat Rate mL/min Glucose Level 152 Calcium Level 9.2 Phosphorus Level 1.2 L Magnesium Level 1.9 D-Dimer 425.72 489.82 H D-Dimer Comment Medications Medications Current Medications IV Flush (NS 3 ml) 3 ml PER PROTOCOL IV ; Start 02/14/19 at 01:00 Morphine Sulfate (morphine) 2 mg Q4H PRN IV .SEVERE PAIN 7-10 Last administered on 02/19/19 19:49; Admin Dose 2 MG; Start 02/14/19 at 01:00 Heparin Sodium (Porcine) (Heparin (5000 Units/1ml)) 5,000 unit Q12 SC Last administered on 02/20/19 09:16; Admin Dose 5,000 UNIT; Start 02/14/19 at 09:00 Albuterol/ Ipratropium (Duoneb) 3 ml Q2H RESP THERAPY PRN HHN SHORTNESS OF BREATH Last administered on 02/20/19 04:29; Admin Dose 3 ML; Start 02/14/19 at 01:00 Hydralazine HCl (Apresoline) 10 mg Q6H PRN IV BP >160 Last administered on 20:48; Admin Dose 10 MG; Start 02/14/19 at 10:30 Acetaminophen (Tylenol Liquid) 650 mg Q4H PRN GTB MILD PAIN(1-3)OR ELEVATED TEMP Last administered on 02/19/19 12:17; Admin Dose 650 MG; Start 02/17/19 at 17:00 Alprazolam (Xanax) 0.25 mg Q6H PRN GTB ANXIETY Last administered on 02/18/19at 2 2:58; Admin Dose 0.25 MG; Start 02/17/19 at 17:00 Benazepril HCl (Lotensin) 10 mg BID PO Last administered on 02/20/19 09:13; Admin Dose 10 MG; Start 02/17/19 at 21:00 Ondansetron HCl (Zofran Inj) 4 mg Q4H PRN IV NAUSEA/VOMITING; Start 02/18/19 at 12:30 Acetaminophen/ Aspirin/Caffeine (Excedrin) 1 tab BID PRN PO HEADACHE Last administered on 02/20/19 09:18; Admin Dose 1 TAB; Start 02/19/19 at 15:30 Levalbuterol (Xopenex Neb) 0.63 mg Q8H RESP THERAPY HHN Last administered on 02/20/19 16:16; Admin Dose 0.63 MG; Start 02/19/19 at 16:00 Docusate Sodium (Colace) 100 mg DAILY PO Last administered on 02/20/19 09:13; Admin Dose 100 MG; Start 02/20/19 at 09:00 Famotidine (Pepcid) 20 mg Q12 PO ; Start 02/20/19 at 21:00 Metoprolol Succinate (Toprol Xl) 25 mg DAILY PO Last administered on 02/20/19at 18:40; Admin Dose 25 MG; Start 02/20/19 at 17:30 Cefepime HCl 50 ml @ 100 mls/hr Q12 IVPB ; Start 02/20/19 at 21:00 AUSTEN WONG Feb 20, 2019 19:27
[2019-02-20] MEDS: ALPRAZOLAM 0.25 MG TAB GTB PRN (19:59)
[2019-02-20] MEDS: FAMOTIDINE 20 MG TAB PO SCH (21:11)
[2019-02-20] MEDS: CEFEPIME 1GM/50 ML (PMX) 50 ML IVPB SCH (21:12)
[2019-02-21] MEDS: LEVALBUTEROL (NEB) 0.63 MG/3 ML AMP HHN SCH ×3 (00:25→17:38)
[2019-02-21 02:00] VITALS: BP 197/98; PULSE 76; RESP 18
[2019-02-21] MEDS: hydrALAzine 20 MG INJ IV PRN ×2 (03:18→21:17)
[2019-02-21 03:49] VITALS: BP 173/76; PULSE 100
[2019-02-21 07:25] VITALS: BP 149/71; PULSE 109; RESP 20
[2019-02-21] MEDS: CEFEPIME 1GM/50 ML (PMX) 50 ML IVPB SCH ×2 (08:23→21:16)
[2019-02-21] MEDS: BENAZEPRIL 10 MG TAB PO SCH ×2 (08:25→21:17)
[2019-02-21] MEDS: METOPROLOL (XL) 25 MG TAB PO SCH (08:26)
[2019-02-21] MEDS: FAMOTIDINE 20 MG TAB PO SCH ×2 (08:27→21:16)
[2019-02-21] MEDS: HEPARIN 5,000 UNIT/1 ML VIAL SC SCH ×2 (08:30→21:24)
--- NOTE | 2019-02-21 09:47 | CONS ---
Consult Date/Type/Reason Admit Date/Time Feb 13, 2019 at 23:02 Initial Consult Date 02/14/19 Requesting Provider: JAKE MCDERMOTT MD Date/Time of Note DATE: 02/21/19 TIME: 09:44 Subjective Chronically ill appearing - off tele - stable by exam. ROS: No fever, no chills, no nausea, no vomiting, no diarrhea/constipation - per nurse Objective Vitals Vital Signs Date Temp Pulse Resp B/P (MAP) Pulse Ox O2 O2 Flow FiO2 Time Delivery Rate 02/21/19 108 20 94 Nasal 2.0 08:09 Cannula 02/21/19 97.9 149/71 07:25 (97) Intake and Output 02/20/19 02/20/19 02/21/19 1515:00 23:00 07:00 IntakeIntake Total 150 ml 255 ml 50 ml BalanceBalance 150 ml 255 ml 50 ml Exam General: WN/WD/NAD, AOx 1-2 HEENT: Unicetric/atraumatic/EOMI (follows commands) NECK: JVD elevated, no thyromegaly Lymph: no lymphadenopathy HEART: regular with no S3, II/ systolic murmur at apex LUNGS: Coarse sounds ABD: soft, NT, ND, +BS : Intact, PEG in place Neuro: non focal SKIN: chronic changes EXT: trace edema Results/Medications Result Diagram: 02/20/1913 02/20/19512 Results 24 hrs Laboratory Tests Test 02/20/19 15:06 02/20/19 18:00 D-Dimer 425.72 489.82 H D-Dimer Comment Home Meds Reported Medications Methotrexate* (Methotrexate*) 2.5 Mg Tab, 7.5 MG PO MONTHLY, TAB 02/14/19 Alprazolam* (Alprazolam*) 0.25 Mg Tablet, 0.25 MG PO TID PRN for ANXIETY, TAB 02/14/19 Hydroxyzine Hcl* (Hydroxyzine Hcl*) 10 Mg Tablet, 10 MG PO Q6H PRN for ITCHING, #30 TAB 02/14/19 Hydrocodone/Acetaminophen ([place] 5-325 Tablet) 1 Each Tablet, 1 EACH PO Q6H PRN for PAIN LEVEL 6-10, TAB 02/14/19 Medications Current Medications IV Flush (NS 3 ml) 3 ml PER PROTOCOL IV ; Start 02/14/19 at 01:00 Morphine Sulfate (morphine) 2 mg Q4H PRN IV .SEVERE PAIN 7-10 Last administered on 02/19/19 19:49; Admin Dose 2 MG; Start 02/14/19 at 01:00 Heparin Sodium (Porcine) (Heparin (5000 Units/1ml)) 5,000 unit Q12 SC Last a dministered on 02/21/19 08:30; Admin Dose 5,000 UNIT; Start 02/14/19 at 09:00 Albuterol/ Ipratropium (Duoneb) 3 ml Q2H RESP THERAPY PRN HHN SHORTNESS OF BREATH Last administered on 02/20/19 04:29; Admin Dose 3 ML; Start 02/14/19 at 01:00 Hydralazine HCl (Apresoline) 10 mg Q6H PRN IV BP >160 Last administered on 02/21/19 03:18; Admin Dose 10 MG; Start 02/14/19 at 10:30 Acetaminophen (Tylenol Liquid) 650 mg Q4H PRN GTB MILD PAIN(1-3)OR ELEVATED TEMP Last administered on 02/19/19 12:17; Admin Dose 650 MG; Start 02/17/19 at 17:00 Alprazolam (Xanax) 0.25 mg Q6H PRN GTB ANXIETY Last administered on 02/20/19 19:59; Admin Dose 0.25 MG; Start 02/17/19 at 17:00 Benazepril HCl (Lotensin) 10 mg BID PO Last administered on 02/21/19 08:25; Admin Dose 10 MG; Start 02/17/19 at 21:00 Ondansetron HCl (Zofran Inj) 4 mg Q4H PRN IV NAUSEA/VOMITING; Start 02/18/19 at 12:30 Acetaminophen/ Aspirin/Caffeine (Excedrin) 1 tab BID PRN PO HEADACHE Last administered on 02/20/19 09:18; Admin Dose 1 TAB; Start 02/19/19 at 15:30 Levalbuterol (Xopenex Neb) 0.63 mg Q8H RESP THERAPY HHN Last administered on 02/21/19 08:08; Admin Dose 0.63 MG; Start 02/19/19 at 16:00 Docusate Sodium (Colace) 100 mg DAILY PO Last administered on 02/20/19at 09:13; Admin Dose 100 MG; Start 02/20/19 at 09:00 Famotidine (Pepcid) 20 mg Q12 PO Last administered on 02/21/19at 08:27; Admin Dose 20 MG; Start 02/20/19 at 21:00 Metoprolol Succinate (Toprol Xl) 25 mg DAILY PO Last administered on 02/21/19at 08:26; Admin Dose 25 MG; Start 02/20/19 at 17:30 Cefepime HCl 50 ml @ 100 mls/hr Q12 IVPB Last administered on 02/21/19at 08:23; Admin Dose 100 MLS/HR; Start 02/20/19 at 21:00 Assessment/Plan Hospital Course (Demo Recall) 1. Preoperative evaluation prior to placement of a PEG tube for dysphagia, failure to thrive.-neg trop x 3/NL EF by echo with no sig valve abnl - post PEG - tolerated well, feeds now 2. Failure to thrive - con't support with nutrition. 3. Hypertension - well Rx. 4. Abnormal electrocardiogram with right bundle branch block pattern, secondary repolarization abnormalities, left anterior fascicular block. No intervention planned. 5. Carotid body tumor- defer to PMD. 6. Generalized wasting and cachexia. 7. Anxiety. 8. Rheumatoid arthritis. ISAAC PAREDES MD Feb 21, 2019 09:46
[2019-02-21] MEDS: ALPRAZOLAM 0.25 MG TAB GTB PRN (13:40)
--- NOTE | 2019-02-21 13:50 | PN ---
Date/Time of Note Date/Time of Note DATE: 02/21/19 TIME: 13:47 Assessment/Plan VTE Prophylaxis Risk score (from Nsg)>0 risk: 7 SCD applied (from Nsg): Yes Pharmacological prophylaxis: heparin Lines/Catheters IV Catheter Type (from Nrs): Saline Lock Assessment/Plan Hospital Course S: c/o phlegm O: General: alert, answers questions appropriately with aphasic speech and evidence of chronic cognitive deficits, cachectic, elderly HEENT: NC/ AT. PERRL. EOM intact CVS: tachycardia . no pain on chest wall palpation Lungs: CTA b/l. no wheezing or rhonchi Abd: abd binder in place, non tender Ext: moving all extremities skin: no rashes Assessment and plan: 1. Moderate malnutrition, status post PEG tube, Continue oral gratification feeds if feasible & tube feeds 2. PEG tube status 3. Dysphagia, unknown etiology. Status post EGD. f/u wGI 4. Carotid bulb tumor? Outpatient appt Dr Brown for further workup 5. Thyroid nodule, sp ultrasound. needs serial yearly monitoring 6. Generalized anxiety disorder: chronic, stable 7. 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 Chronic rheumatoid arthritis 9. Acute hypoxic respiratory failure with highly probable aspiration pneumonia: begin empiric abx 10. Sinus tachycardia possibly improved with fluids. Will also consider due to pain, d-dimer not too impressive, lower extremity Dopplers negative for DVT 11. Urinary tract infection with group B strep DIspo: begin dc planning, SNF versus home , Wednesday to speak extensively with the patient's daughter, and she will confirm with her brother but it seems like the family will probably opt for senior care facility placement Result Diagram: 02/20/19 0513 02/20/19 0513 Results 24hrs Laboratory Tests Test 02/20/19 15:06 02/20/19 18:00 D-Dimer 425.72 489.82 H D-Dimer Comment Exam/Review of Systems Exam Vitals Vital Signs Date Temp Pulse Resp B/P (MAP) Pulse Ox O2 O2 Flow FiO2 Time Delivery Rate 02/21/19 Nasal 2.0 09:20 Cannula 02/21/19 108 20 94 08:09 02/21/19 97.9 149/71 07:25 (97) Intake and Output 02/20/19 02/20/19 02/21/19 1515:00 23:00 07:00 IntakeIntake Total 150 ml 255 ml 50 ml BalanceBalance 150 ml 255 ml 50 ml Results Results 24hrs Laboratory Tests Test 02/20/19 15:06 02/20/19 18:00 D-Dimer 425.72 489.82 H D-Dimer Comment Medications Medication Current Medications IV Flush (NS 3 ml) 3 ml PER PROTOCOL IV ; Start 02/14/19 at 01:00 Morphine Sulfate (morphine) 2 mg Q4H PRN IV .SEVERE PAIN 7-10 Last administered on 02/19/19 19:49; Admin Dose 2 MG; Start 02/14/19 at 01:00 Heparin Sodium (Porcine) (Heparin (5000 Units/1ml)) 5,000 unit Q12 SC Last administered on 02/21/19 08:30; Admin Dose 5,000 UNIT; Start 02/14/19 at 09:00 Albuterol/ Ipratropium (Duoneb) 3 ml Q2H RESP THERAPY PRN HHN SHORTNESS OF BREATH Last administered on 02/20/19 04:29; Admin Dose 3 ML; Start 02/14/19 at 01:00 Hydralazine HCl (Apresoline) 10 mg Q6H PRN IV BP >160 Last administered on 02/21/19 03:18; Admin Dose 10 MG; Start 02/14/19 at 10:30 Acetaminophen (Tylenol Liquid) 650 mg Q4H PRN GTB MILD PAIN(1-3)OR ELEVATED TEMP Last administered on 02/19/19 12:17; Admin Dose 650 MG; Start 02/17/19 at 17:00 Alprazolam (Xanax) 0.25 mg Q6H PRN GTB ANXIETY Last administered on 02/21/19 13:40; Admin Dose 0.25 MG; Start 02/17/19 at 17:00 Benazepril HCl (Lotensin) 10 mg BID PO Last administered on 02/21/19 08:25; Admin Dose 10 MG; Start 02/17/19 at 21:00 Ondansetron HCl (Zofran Inj) 4 mg Q4H PRN IV NAUSEA/VOMITING; Start 02/18/19 at 12:30 Acetaminophen/ Aspirin/Caffeine (Excedrin) 1 tab BID PRN PO HEADACHE Last administered on 02/20/19 09:18; Admin Dose 1 TAB; Start 02/19/19 at 15:30 Levalbuterol (Xopenex Neb) 0.63 mg Q8H RESP THERAPY HHN Last administered on 02/21/19 08:08; Admin Dose 0.63 MG; Start 02/19/19 at 16:00 Docusate Sodium (Colace) 100 mg DAILY PO Last administered on 02/20/19 09:13; Admin Dose 100 MG; Start 02/20/19 at 09:00 Famotidine (Pepcid) 20 mg Q12 PO Last administered on 02/21/19 08:27; Admin Dose 20 MG; Start 02/20/19 at 21:00 Metoprolol Succinate (Toprol Xl) 25 mg DAILY PO Last administered on 02/21/19 08:26; Admin Dose 25 MG; Start 02/20/19 at 17:30 Cefepime HCl 50 ml @ 100 mls/hr Q12 IVPB Last administered on 02/21/19 08:23; Admin Dose 100 MLS/HR; Start 02/20/19 at 21:00 JORDYN PAULINO Feb 21, 2019 13:50
[2019-02-21 14:15] VITALS: BP 173/88; PULSE 102; RESP 20
[2019-02-21] MEDS: GUAIFENESIN LA 600 MG TABSR PO SCH ×2 (16:40→21:17)
[2019-02-21] MEDS: ASA/ACETAMINOPHEN/CAFF TAB PO PRN (16:40)
--- NOTE | 2019-02-21 17:35 | PSY ---
Date/Time of Note Date/Time of Note DATE: 02/21/19 TIME: 17:34 Psychiatric Subjective Eval Consent Pt consented to telemedicine: No Subjective Evaluation Patient location: inpatient Chief Complaint: weakness, poor appetite, anxiety. lives alone at home. >20lbs weight loss History of present illness Patient is a 78-year-old female with history dysphagia. Patient is Thai- speaking only translation is done by staff. Patient states she feels sad she feels depressed because of inability to swallow. Patient states she will not kill herself but wishes she was . Please risk and benefits of antidepress ants and anxiety pill to patient and son and she verbalized understanding. Past psychiatric history Denies Hospitalization: other Medical history Problems Medical Problems: (1) Acute dehydration Status: Acute (2) Acute hypernatremia Status: Acute (3) Failure to thrive Status: Acute Allergies: Coded Allergies: No Known Drug Allergy (Verified Allergy, Unknown, 02/13/19) Substance Abuse Substance abuse history: No Prior substance abuse treatmen: No Social History Marital status: other DPA/Conservatorship: No Psychiatric Objective Eval Review of Systems: Review of Systems: Not Applicable Physical Examination: Sleep: Terminal Appetite: Decreased, Weight Loss Interest: Decreased Mental Status Examination: Appearance: Poor Hygiene Eye Contact: Poor Psychomotor Activity: Slow Behavior: Cooperative, Other Speech: Prolong Speech Latency AFFECT: Depressed Mood: Anxious Though Process: Linear Orientation: x3 Insight: Mild Judgement: Mild Attention Span: Distractible Laboratory Results Laboratory Tests Test 02/20/19 05:13 02/20/19 15:06 02/20/19 18:00 White Blood Count 8.3 10^3/ul Red Blood Count 4.13 10^6/ul Hemoglobin 13.4 g/dl Hematocrit 39.8 % Mean Corpuscular Volume 96.4 fl Mean Corpuscular Hemoglobin 32.4 pg Mean Corpuscular 33.7 g/dl Hemoglobin Concent Red Cell Distribution Width 14.6 % Platelet Count 179 10^3/UL Mean Platelet Volume 10.8 fl Immature Granulocytes % 0.400 % Neutrophils % 86.5 % Lymphocytes % 6.8 % Monocytes % 6.2 % Eosinophils % 0.0 % Basophils % 0.1 % Nucleated Red Blood Cells % 0.0 /100WBC Immature Granulocytes # 0.030 10^3/ul Neutrophils # 7.2 10^3/ul Lymphocytes # 0.6 10^3/ul Monocytes # 0.5 10^3/ul Eosinophils # 0.0 10^3/ul Basophils # 0.0 10^3/ul Nucleated Red Blood Cells # 0.0 10^3/ul Sodium Level 134 mmol/L Potassium Level 4.1 mmol/L Chloride Level 95 mmol/L Carbon Dioxide Level 39 mmol/L Anion Gap 0 Blood Urea Nitrogen 10 mg/dl Creatinine 0.18 mg/dl Est Glomerular Filtrat Rate mL/min mL/min Glucose Level 152 mg/dl Calcium Level 9.2 mg/dl Phosphorus Level 1.2 mg/dl Magnesium Level 1.9 mg/dl D-Dimer 425.72 ng/ml 489.82 ng/ml D-Dimer Comment Assessment and Plan Assessment/Diagnosis Diagnosis Major depressive disorder single episode, rule out historical conversion disorder Recommendation/Plan Medication Management Remeron 7.5 mg at bedtime via G-tube, and Klonopin 0.5 mg every 6 hours as needed for anxiety Multiple antipsychotics: No Psychotherapy Provide supportive therapy Discharge Disposition: Other Legal Status: Voluntary (Patient does not meet criteria for 5150 hold) DANIEL JACKSON NP Feb 21, 2019 17:35
[2019-02-21 19:31] VITALS: BP 172/82; PULSE 99; RESP 18
[2019-02-21] MEDS ORDERED: DOCUSATE SODIUM 100 MG CAP PO SCH (21:00)
[2019-02-21] MEDS: DOCUSATE SODIUM 10 MG/ML (10ML CUP) GTB SCH (21:16)
[2019-02-21] MEDS: MIRTAZAPINE 15 MG TAB GTB SCH (21:17)
[2019-02-21] MEDS ORDERED: clonAZEPAM 0.5 MG TAB GTB SCH (22:00)
[2019-02-21 22:30] VITALS: BP 132/60; RESP 18
[2019-02-22] VITALS (7 sets, daily range): BP systolic 106–189; BP diastolic 54–77; PULSE 81–107; RESP 18–20
[2019-02-22] MEDS: LEVALBUTEROL (NEB) 0.63 MG/3 ML AMP HHN SCH ×2 (00:52→07:23)
[2019-02-22] MEDS: GUAIFENESIN LA 600 MG TABSR PO SCH (10:04)
[2019-02-22] MEDS: BENAZEPRIL 10 MG TAB PO SCH (10:04)
[2019-02-22] MEDS: CEFEPIME 1GM/50 ML (PMX) 50 ML IVPB SCH ×2 (10:04→22:03)
[2019-02-22] MEDS: FAMOTIDINE 20 MG TAB PO SCH (10:04)
[2019-02-22] MEDS: DOCUSATE SODIUM 10 MG/ML (10ML CUP) GTB SCH ×2 (10:04→22:02)
[2019-02-22] MEDS: METOPROLOL (XL) 25 MG TAB PO SCH (10:05)
[2019-02-22] MEDS: HEPARIN 5,000 UNIT/1 ML VIAL SC SCH ×2 (10:07→22:04)
[2019-02-22] MEDS: ARFORMOTEROL TARTRATE 15MCG/2 ML AMP NEB SCH ×2 (11:00→21:45)
[2019-02-22] MEDS: ALPRAZOLAM 0.25 MG TAB GTB PRN (12:01)
[2019-02-22] MEDS: hydrALAzine 20 MG INJ IV PRN (14:13)
[2019-02-22] MEDS ORDERED: SODIUM PHOSPHATE 15 MMOL in SOD CHLORIDE 0.9% 250 ML IVPB ONE (14:30)
--- NOTE | 2019-02-22 15:28 | CONS ---
Assessment/Plan Assessment/Plan Hospital Course (Demo Recall) IMPRESSION: 1. Preoperative evaluation prior to placement of a PEG tube for dysphagia, failure to thrive.-neg trop x 3/NL EF by echo with no sig valve abnl 2. Failure to thrive. 3. Hypertension. 4. Abnormal electrocardiogram with right bundle branch block pattern, secondary repolarization abnormalities, left anterior fascicular block. 5. Carotid body tumor. 6. Generalized wasting and cachexia. 7. Anxiety. 8. Rheumatoid arthritis. Recc: -OK to proceed to PEG placement at moderate cv risk without further noninvasive evaluation. Now post-op s/p G tube this admit -uptitrate antihypertensives to improve BP control as you are doing -Continue abx's and f/u cx data Consultation Date/Type/Reason Admit Date/Time Feb 13, 2019 at 23:02 Initial Consult Date 02/14/19 Type of Consult Cardiology Reason for Consultation HTN Requesting Provider: JAKE MCDERMOTT MD Date/Time of Note DATE: 02/22/19 TIME: 15:26 Exam/Review of Systems Vital Signs Vitals Vital Signs Date Temp Pulse Resp B/P (MAP) Pulse Ox O2 O2 Flow FiO2 Time Delivery Rate 02/22/19 103 189/77 13:14 (114) 02/22/19 97.0 18 95 13:10 02/22/19 Nasal 4.0 07:26 Cannula 02/22/19 50 04:24 Intake and Output 02/21/19 02/21/19 02/22/19 1515:00 23:00 07:00 IntakeIntake Total 50 ml 940 ml 845 ml BalanceBalance 50 ml 940 ml 845 ml Exam Exam Review of Systems: CONSTITUTIONAL: No fevers, chills. PULMONARY: No sob CARDIOVASCULAR: No chest pain/palpitations GASTROINTESTINAL: No nausea/vomiting. GENITOURINARY: No hematuria/dysuria. MUSCULOSKELETAL: No myagias/arthalgias. PSYCHIATRIC: The patient denies depression. NEUROLOGIC: No weakness Constitutional: alert Psych: no complaints Head: normocephalic ENMT: mucosa pink and moist Neck: supple, jvd (9 cm water) Respiratory: diminished breath sounds Cardiovascular: regular rate and rhythm Gastrointestinal: soft, non-tender Musculoskeletal: muscle tone (normal) Extremities: edema (none) 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: other (No focal deficits) Labs Result Diagram: 02/22/19 0459 02/22/19 0459 Results 24hrs Laboratory Tests Test 02/22/19 01:23 02/22/19 04:00 02/22/19 04:59 Blood Gas Specimen Blood arterial Blood arterial Source Arterial Blood Date 02/22/2019 1:35:48 AM 02/22/2019 4:10:25 AM Drawn Arterial Blood pH 7.374 7.456 H (Temp corrected) Arterial Blood pCO2 71.5 H 52.4 H (Temp correct) Arterial Blood pO2 65.7 L 150.7 H (Temp corrected) Arterial Blood HCO3 40.8 *H 36.1 H Arterial Blood Base 12.0 H 10.3 H Excess Arterial Blood 92.8 L 98.8 Oxygen Saturation Kumar Test N/A N/A Arterial Blood Gas LB Right Brachial Puncture Site Arterial 0.1 0.3 Blood Carboxyhemoglob in Arterial Blood 0.1 0.2 Methemoglobin Blood Gas A-a O2 86.1 H 255.8 H Differential Oxyhemoglobin Percent 92.6 L 98.3 Blood Gas Temperature 37.0 37.0 Blood Gas Modality NASAL CANNULA MASK - BIPAP FiO2 33.0 65.0 Blood Gas Critical Stephany REYES MD Value Read Back Blood Gas Notified KM KM Whom Blood Gas Notified 02/22/2019 1:45:09 AM 02/22/2019 4:18:26 AM Time Blood Gas Respiration 26.0 Rate Blood Gas Actual 30 Respiration Rate Blood Gas Pressure 8 Support Blood Gas IPAP/EPAP 18/5 Ratio White Blood Count 8.1 Red Blood Count 4.15 L Hemoglobin 13.7 Hematocrit 40.2 Mean Corpuscular 96.9 Volume Mean Corpuscular 33.0 Hemoglobin Mean Corpuscular 34.1 Hemoglobin Concent Red Cell Distribution 14.4 Width Platelet Count 274 # Mean Platelet Volume 10.2 Immature Granulocytes 0.400 % Neutrophils % 78.6 H Lymphocytes % 11.5 L Monocytes % 9.4 Eosinophils % 0.0 Basophils % 0.1 Nucleated Red Blood 0.0 Cells % Immature Granulocytes 0.030 # Neutrophils # 6.3 Lymphocytes # 0.9 Monocytes # 0.8 Eosinophils # 0.0 Basophils # 0.0 Nucleated Red Blood 0.0 Cells # Sodium Level 135 Potassium Level 4.1 Chloride Level 90 L Carbon Dioxide Level 40 H Anion Gap 5 Blood Urea Nitrogen 20 Creatinine 0.27 L Est Glomerular Filtrat Rate mL/min Glucose Level 115 Calcium Level 9.3 Phosphorus Level 2.3 #L Magnesium Level 2.0 Medications Medications Current Medications IV Flush (NS 3 ml) 3 ml PER PROTOCOL IV ; Start 02/14/19 at 01:00 Morphine Sulfate (morphine) 2 mg Q4H PRN IV .SEVERE PAIN 7-10 Last administered on 02/19/19 19:49; Admin Dose 2 MG; Start 02/14/19 at 01:00 Heparin Sodium (Porcine) (Heparin (5000 Units/1ml)) 5,000 unit Q12 SC Last administered on 02/22/19 10:07; Admin Dose 5,000 UNIT; Start 02/14/19 at 09:00 Albuterol/ Ipratropium (Duoneb) 3 ml Q2H RESP THERAPY PRN HHN SHORTNESS OF BREATH Last administered on 02/20/19 04:29; Admin Dose 3 ML; Start 02/14/19 at 01:00 Hydralazine HCl (Apresoline) 10 mg Q6H PRN IV BP >160 Last administered on 02/22/19at 14:13; Admin Dose 10 MG; Start 02/14/19 at 10:30 Acetaminophen (Tylenol Liquid) 650 mg Q4H PRN GTB MILD PAIN(1-3)OR ELEVATED TEM P Last administered on 02/19/19 12:17; Admin Dose 650 MG; Start 02/17/19 at 17:00 Alprazolam (Xanax) 0.25 mg Q6H PRN GTB ANXIETY Last administered on 02/22/19 12:01; Admin Dose 0.25 MG; Start 02/17/19 at 17:00 Benazepril HCl (Lotensin) 10 mg BID PO Last administered on 02/22/19 10:04; Admin Dose 10 MG; Start 02/17/19 at 21:00 Ondansetron HCl (Zofran Inj) 4 mg Q4H PRN IV NAUSEA/VOMITING; Start 02/18/19 at 12:30 Acetaminophen/ Aspirin/Caffeine (Excedrin) 1 tab BID PRN PO HEADACHE Last admin istered on 02/21/19at 16:40; Admin Dose 1 TAB; Start 02/19/19 at 15:30 Famotidine (Pepcid) 20 mg Q12 PO Last administered on 02/22/19at 10:04; Admin Dose 20 MG; Start 02/20/19 at 21:00 Cefepime HCl 50 ml @ 100 mls/hr Q12 IVPB Last administered on 02/22/19at 10:04; Admin Dose 100 MLS/HR; Start 02/20/19 at 21:00 Guaifenesin (Mucinex) 600 mg BID PO Last administered on 02/22/19at 10:04; Admin Dose 600 MG; Start 02/21/19 at 14:30 Docusate Sodium (Colace Liquid Cup) 100 mg BID GTB Last administered on 02/22/19 10:04; Admin Dose 100 MG; Start 02/21/19 at 21:00 Mirtazapine (Remeron) 7.5 mg HS GTB Last administered on 02/21/19at 21:17; Admin Dose 7.5 MG; Start 02/21/19 at 21:00 Arformoterol Tartrate (Brovana (Neb)) 2 ml Q12H RESP THERAPY NEB ; Start 02/22/19 at 11:00 Metoprolol Succinate (Toprol Xl) 50 mg DAILY PO ; Start 02/23/19 at 09:00 Sodium Phosphate 15 mmol/Sodium Chloride 255 ml @ 63.75 mls/ hr ONCE ONCE IVPB ; Start 02/22/19 at 14:30; Stop 02/22/19 at 18:29 AUSTEN WONG Feb 22, 2019 15:28
--- NOTE | 2019-02-22 16:30 | DS ---
Date/Time of Note Date/Time of Note DATE: 02/22/19 TIME: 16:21 Discharge Summary Admission/Discharge Info Admit Date/Time Feb 13, 2019 at 23:02 Discharge Date/Time Discharge Diagnosis 1. Moderate malnutrition, status post PEG tube, Continue oral gratification feeds if feasible & tube feeds 2. PEG tube status 3. Dysphagia, unknown etiology. Status post EGD. -No significant abnormality on EGD, also status post ENT review and endoscopy without significant abnormality as well 4. Carotid bulb tumor? Outpatient appt Dr Brown for further workup 5. Thyroid nodule, sp ultrasound. needs serial yearly monitoring 6. Generalized anxiety disorder: chronic, stable 7. Acute hypoxic respiratory failure with highly probable aspiration pneumonia: improving on abx 8. Chronic rheumatoid arthritis Patient Condition: Stable Consults Gastroenterology: Salud Mendoza MD, MD Cardiology Lemuel Barger MD ENT: Adrián Riley MD Psychiatry: Yue Brewster nurse practitioner . Hx of Present Illness 1. Upper endoscopy through the mouth with PEG tube placement and initiate of PEG tube feeds 2. Endoscopy through the nostril 3. See hospital course and chart . Hospital Course 78-year-old female who was admitted by the emergency room brought in by family because of generalized weakness, anxiety and dysphasia. Patient is chronically cachectic with a BMI of 14. She was being worked up as outpatient for NG tube placement. She was admitted and GI consultation was obtained. However prior to NG tube placement GI requested cardiology clearance. Cardiology did see the patient and 2D echo was done. Echocardiogram showed moderate left ventricular systolic dysfunction with EF of 55-60% and stage I diastolic dysfunction. There is no significant valvular deficits. Eventually she underwent PEG tube placemen t February 17, 2019 by EGD. She was found to have a small hiatal hernia on EGD. She was immediately started on tube feeds and did fairly well. However incidental workup did show that she had a carotid body tumor and a thyroid nodule which she got an ultrasound to assess. Ultrasound recommended screening ultrasounds yearly for the thyroid nodule. For the carotid bulb tumor, the anastasiya vega will follow up with vascular as an outpatient. Patient was however requiring supplemental oxygen and was diagnosed with acute hypoxic respiratory failure and was thought to be likely secondary to aspiration pneumonia. She also had sinus tachycardia. She was maintained on antibiotics. Of note is that she was also seen by ENT for dysphagia evaluation and endoscopy via nasal cavity was done and it showed no vocal cord abnormalities or lesions. Patient is cleared to just be discharged to the long term facility to continue speech patient on physical therapy while there and also for nutrition support for her severe malnutrition. . Home Meds Reported Medications Methotrexate* (Methotrexate*) 2.5 Mg Tab, 7.5 MG PO MONTHLY, TAB 02/14/19 Alprazolam* (Alprazolam*) 0.25 Mg Tablet, 0.25 MG PO TID PRN for ANXIETY, TAB 02/14/19 Hydroxyzine Hcl* (Hydroxyzine Hcl*) 10 Mg Tablet, 10 MG PO Q6H PRN for ITCHING, #30 TAB 02/14/19 Hydrocodone/Acetaminophen (Ensign 5-325 Tablet) 1 Each Tablet, 1 EACH PO Q6H PRN for PAIN LEVEL 6-10, TAB 02/14/19 Follow-up Plan 1. Patient is to follow-up with vascular surgery for carotid bulb tumor 2. Patient also needs to follow-up with endocrinology for monitoring of thyroid nodule 3. Continue close monitoring and screening. Primary care as signed at long term facility . Primary Care Provider Not On Staff Doctor Time spent on discharge: > 30 minutes Pending Labs Laboratory Tests Test 02/22/19 01:23 02/22/19 04:00 02/22/19 04:59 Blood Gas Specimen Blood arterial Blood arterial Source Arterial Blood Date 02/22/2019 1:35:48 02/22/2019 4:10:25 Drawn AM AM Arterial Blood pH 7.374 (7.350-7.450) 7.456 (7.350-7.450 (Temp corrected) ) Arterial Blood pCO2 71.5 mmhg (35-45) 52.4 mmhg (35-45) (Temp correct) Arterial Blood pO2 65.7 mmHG (80-90.0) 150.7 (Temp corrected) mmHG (80-90.0) Arterial Blood 40.8 36.1 HCO3 mmol/L (22.0-26.0) mmol/L (22.0-26.0) Arterial Blood Base 12.0 10.3 Excess mmol/L (-3.0-3) mmol/L (-3.0-3) Arterial Blood 92.8 98.8 Oxygen Saturation mmHG (95.0-100.0) mmHG (95.0-100.0) Kumar Test N/A N/A Arterial Blood Gas LB Right Brachial Puncture Site Arterial 0.1 % (0.0-3.0) 0.3 % (0.0-3.0) Blood Carboxyhemogl obin Arterial Blood 0.1 % (0.0-1.5) 0.2 % (0.0-1.5) Methemoglobin Blood Gas A-a O2 86.1 255.8 Differential mmHg (7.0-24.0) mmHg (7.0-24.0) Oxyhemoglobin 92.6 % (93.0-99.0) 98.3 % (93.0-99.0) Percent Blood Gas 37.0 C 37.0 C Temperature Blood Gas Modality NASAL CANNULA MASK - BIPAP FiO2 33.0 % 65.0 % Blood Gas Critical Stephany REYES MD Value Read Back Blood Gas Notified KM KM Whom Blood Gas Notified 02/22/2019 1:45:09 02/22/2019 4:18:26 Time AM AM Blood Gas 26.0 Respiration Rate Blood Gas Actual 30 Respiration Rate Blood Gas Pressure 8 Support Blood Gas IPAP/EPAP 18/5 Ratio White Blood Count 8.1 10^3/ul (4.8-10.8) Red Blood Count 4.15 10^6/ul (4.20-5.40 ) Hemoglobin 13.7 g/dl (12.0-16.0) Hematocrit 40.2 % (37.0-47.0) Mean Corpuscular 96.9 Volume fl (82.0-101.0) Mean Corpuscular 33.0 Hemoglobin pg (29.0-33.0) Mean Corpuscular 34.1 Hemoglobin Concent g/dl (32.0-37.0) Red Cell 14.4 % (11.5-14.5) Distribution Width Platelet Count 274 10^3/UL (140-415) Mean Platelet 10.2 fl (7.4-10.4) Volume Immature 0.400 Granulocytes % % (0.001-0.429) Neutrophils % 78.6 % (39.0-77.0) Lymphocytes % 11.5 % (15.0-51.0) Monocytes % 9.4 % (0.0-11.0) Eosinophils % 0.0 % (0.0-7.0) Basophils % 0.1 % (0.0-2.0) Nucleated Red Blood 0.0 Cells % /100WBC (0.0-0.0) Immature 0.030 Granulocytes # 10^3/ul (0.0-0.031 ) Neutrophils # 6.3 10^3/ul (1.6-7.5) Lymphocytes # 0.9 10^3/ul (0.8-2.9) Monocytes # 0.8 10^3/ul (0.3-0.9) Eosinophils # 0.0 10^3/ul (0.0-0.5) Basophils # 0.0 10^3/ul (0.0-0.1) Nucleated Red Blood 0.0 Cells # 10^3/ul (0.0-0.0) Sodium Level 135 mmol/L (135-144) Potassium Level 4.1 mmol/L (3.5-5.1) Chloride Level 90 mmol/L (97-110) Carbon Dioxide 40 mmol/L (21-31) Level Anion Gap 5 (5-13) Blood Urea 20 mg/dl (7-20) Nitrogen Creatinine 0.27 mg/dl (0.44-1.00) Est Glomerular mL/min (>60) Filtrat Rate mL/min Glucose Level 115 mg/dl (70-220) Calcium Level 9.3 mg/dl (8.4-10.2) Phosphorus Level 2.3 mg/dl (2.5-4.9) Magnesium Level 2.0 mg/dl (1.7-2.5) JORDYN PAULINO Feb 22, 2019 16:30
[2019-02-22] MEDS: ASA/ACETAMINOPHEN/CAFF TAB PO PRN (17:01)
[2019-02-22] MEDS ORDERED: METOPROLOL 50 MG TAB PO SCH (21:00)
[2019-02-22] MEDS ORDERED: GUAIFENESIN/DM 5ML CUP GTB PRN (21:30)
[2019-02-22] MEDS: MIRTAZAPINE 15 MG TAB GTB SCH (22:02)
[2019-02-23 01:46] VITALS: BP 137/64; PULSE 96; RESP 16
[2019-02-23] MEDS: ALBUTEROL/IPRATROPIUM (NEB) 3 ML AMP HHN PRN ×2 (04:58→11:44)
[2019-02-23 07:31] VITALS: BP 139/65; PULSE 96; RESP 17
[2019-02-23] MEDS: ARFORMOTEROL TARTRATE 15MCG/2 ML AMP NEB SCH (08:00)
[2019-02-23] MEDS: DOCUSATE SODIUM 10 MG/ML (10ML CUP) GTB SCH (08:20)
[2019-02-23] MEDS: CEFEPIME 1GM/50 ML (PMX) 50 ML IVPB SCH (08:21)
[2019-02-23] MEDS: HEPARIN 5,000 UNIT/1 ML VIAL SC SCH (08:26)
[2019-02-23] MEDS ORDERED: BENAZEPRIL 10 MG TAB GTB SCH (09:00)
[2019-02-23] MEDS ORDERED: METOPROLOL 50 MG TAB GTB SCH (09:00)
[2019-02-23] MEDS ORDERED: FAMOTIDINE 20 MG TAB GTB SCH (09:00)
[2019-02-23] MEDS ORDERED: METOPROLOL (XL) 25 MG TAB PO SCH (09:00)
[2019-02-23 13:54] VITALS: BP 136/63; PULSE 92; RESP 20
[2019-02-23] MEDS ORDERED: LACTINEX PO (15:12)
[2019-02-23] MEDS ORDERED: BENA10TA4 GTB (15:12)
[2019-02-23] MEDS ORDERED: LEVO500T10 PO (15:12)
[2019-02-23] MEDS ORDERED: DOCU50LI11 GTB (15:12)
[2019-02-23] MEDS ORDERED: METO-429 GTB (15:12)
[2019-02-23] MEDS ORDERED: BROVANA NEB (15:12)
[2019-02-23] MEDS ORDERED: MIRT15TA5 GTB (15:12)
[2019-02-23] MEDS ORDERED: FAMO20TA18 GTB (15:12)
--- NOTE | 2019-02-23 15:15 | PDOCDIS ---
Discharge Instructions DIAGNOSIS Discharge Diagnosis 1. Moderate malnutrition, status post PEG tube, Continue oral gratification feeds if feasible & tube feeds 2. PEG tube status 3. Dysphagia, unknown etiology. Status post EGD. -No significant abnormality on EGD, also status post ENT review and endoscopy without significant abnormality as well 4. Carotid bulb tumor? Outpatient appt Dr Brown for further workup 5. Thyroid nodule, sp ultrasound. needs serial yearly monitoring 6. Generalized anxiety disorder: chronic, stable 7. Acute hypoxic respiratory failure with highly probable aspiration pneumonia: improving on abx 8. Chronic rheumatoid arthritis CONDITION [id number] Patient Condition: [id number] Stable ACTIVITY: [id number] Activity Restrictions: [id number] Slowly Increase Activity Rest between Activity FOLLOW UP/APPOINTMENTS Follow-up Plan 1. Patient is to follow-up with vascular surgery for carotid bulb tumor 2. Patient also needs to follow-up with endocrinology for monitoring of thyroid nodule 3. Continue close monitoring and screening. Primary care as signed at longterm facility . JORDYN PAULINO Feb 23, 2019 15:15
--- NOTE | 2019-02-23 17:28 | CONS ---
Assessment/Plan Assessment/Plan Hospital Course (Demo Recall) IMPRESSION: 1. Preoperative evaluation prior to placement of a PEG tube for dysphagia, failure to thrive.-neg trop x 3/NL EF by echo with no sig valve abnl 2. Failure to thrive. 3. Hypertension. 4. Abnormal electrocardiogram with right bundle branch block pattern, secondary repolarization abnormalities, left anterior fascicular block. 5. Carotid body tumor. 6. Generalized wasting and cachexia. 7. Anxiety. 8. Rheumatoid arthritis. Recc: -OK to proceed to PEG placement at moderate cv risk without further noninvasive evaluation. Now post-op s/p G tube this admit -Continue current antihypertensives with improved BP control -Continue abx's and f/u cx data Consultation Date/Type/Reason Admit Date/Time Feb 13, 2019 at 23:02 Initial Consult Date 02/14/19 Type of Consult Cardiology Reason for Consultation HTN Requesting Provider: JAKE MCDERMOTT MD Date/Time of Note DATE: 02/23/19 TIME: 17:26 Exam/Review of Systems Vital Signs Vitals Vital Signs Date Temp Pulse Resp B/P (MAP) Pulse Ox O2 O2 Flow FiO2 Time Delivery Rate 02/23/19 97.5 92 20 136/63 96 Nasal 13:54 (87) Cannula 02/23/19 2.0 11:44 02/22/19 50 04:24 Intake and Output 02/22/19 02/22/19 02/23/19 1515:00 23:00 07:00 IntakeIntake Total 50 ml 55 ml 795 ml OutputOutput Total 1 ml BalanceBalance 49 ml 55 ml 795 ml Exam Exam Review of Systems: CONSTITUTIONAL: No fevers, chills. PULMONARY: No sob CARDIOVASCULAR: No chest pain/palpitations GASTROINTESTINAL: No nausea/vomiting. GENITOURINARY: No hematuria/dysuria. MUSCULOSKELETAL: No myagias/arthalgias. PSYCHIATRIC: The patient denies depression. NEUROLOGIC: No weakness Constitutional: alert Psych: no complaints Head: normocephalic ENMT: mucosa pink and moist Neck: supple, jvd (9 cm water) Respiratory: diminished breath sounds (at bases/B) Cardiovascular: regular rate and rhythm Gastrointestinal: soft, non-tender Musculoskeletal: muscle weakness (generalized) Extremities: edema (none) 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: lethargic Labs Result Diagram: 02/23/19 0452 02/23/19 0452 Results 24hrs Laboratory Tests Test 02/23/19 04:52 White Blood Count 6.6 Red Blood Count 3.99 L Hemoglobin 13.2 Hematocrit 39.7 Mean Corpuscular Volume 99.5 Mean Corpuscular Hemoglobin 33.1 H Mean Corpuscular Hemoglobin Concent 33.2 Red Cell Distribution Width 14.6 H Platelet Count 313 Mean Platelet Volume 10.1 Immature Granulocytes % 0.300 Neutrophils % 80.6 H Lymphocytes % 10.5 L Monocytes % 8.1 Eosinophils % 0.2 Basophils % 0.3 Nucleated Red Blood Cells % 0.0 Immature Granulocytes # 0.020 Neutrophils # 5.4 Lymphocytes # 0.7 L Monocytes # 0.5 Eosinophils # 0.0 Basophils # 0.0 Nucleated Red Blood Cells # 0.0 Sodium Level 134 L Potassium Level 4.1 Chloride Level 91 L Carbon Dioxide Level 36 H Anion Gap 7 Blood Urea Nitrogen 20 Creatinine 0.18 L Est Glomerular Filtrat Rate mL/min Glucose Level 145 Calcium Level 9.4 Medications Medications Current Medications IV Flush (NS 3 ml) 3 ml PER PROTOCOL IV ; Start 02/14/19 at 01:00 Morphine Sulfate (morphine) 2 mg Q4H PRN IV .SEVERE PAIN 7-10 Last administered on 02/19/19 19:49; Admin Dose 2 MG; Start 02/14/19 at 01:00 Heparin Sodium (Porcine) (Heparin (5000 Units/1ml)) 5,000 unit Q12 SC Last administered on 02/23/19 08:26; Admin Dose 5,000 UNIT; Start 02/14/19 at 09:00 Albuterol/ Ipratropium (Duoneb) 3 ml Q2H RESP THERAPY PRN HHN SHORTNESS OF BREATH Last administered on 02/23/19 11:44; Admin Dose 3 ML; Start 02/14/19 at 01:00 Hydralazine HCl (Apresoline) 10 mg Q6H PRN IV BP >160 Last administered on 02/22/19 14:13; Admin Dose 10 MG; Start 02/14/19 at 10:30 Acetaminophen (Tylenol Liquid) 650 mg Q4H PRN GTB MILD PAIN(1-3)OR ELEVATED TEMP Last administered on 02/19/19 12:17; Admin Dose 650 MG; Start 02/17/19 at 17:00 Alprazolam (Xanax) 0.25 mg Q6H PRN GTB ANXIETY Last administered on 02/22/19 12:01; Admin Dose 0.25 MG; Start 02/17/19 at 17:00 Ondansetron HCl (Zofran Inj) 4 mg Q4H PRN IV NAUSEA/VOMITING; Start 02/18/19 at 12:30 Acetaminophen/ Aspirin/Caffeine (Excedrin) 1 tab BID PRN PO HEADACHE Last administered on 02/22/19 17:01; Admin Dose 1 TAB; Start 02/19/19 at 15:30 Cefepime HCl 50 ml @ 100 mls/hr Q12 IVPB Last administered on 02/23/19 08:21; Admin Dose 100 MLS/HR; Start 02/20/19 at 21:00 Docusate Sodium (Colace Liquid Cup) 100 mg BID GTB Last administered on 02/23/19 08:20; Admin Dose 100 MG; Start 02/21/19 at 21:00 Mirtazapine (Remeron) 7.5 mg HS GTB Last administered on 02/22/19 22:02; Admin Dose 7.5 MG; Start 02/21/19 at 21:00 Arformoterol Tartrate (Brovana (Neb)) 2 ml Q12H RESP THERAPY NEB Last administered on 02/22/19 21:45; Admin Dose 2 ML; Start 02/22/19 at 11:00 Guaifenesin/ Dextromethorphan (Robitussin Dm Liquid Cup) 5 ml Q4H PRN GTB COUGH; Start 02/22/19 at 21:30 Benazepril HCl (Lotensin) 10 mg BID GTB Last administered on 02/23/19 08:21; Admin Dose 10 MG; Start 02/23/19 at 09:00 Famotidine (Pepcid) 20 mg Q12 GTB Last administered on 02/23/19 08:21; Admin Dose 20 MG; Start 02/23/19 at 09:00 Metoprolol Tartrate (Lopressor) 50 mg BID GTB Last administered on 02/23/19 08:21; Admin Dose 50 MG; Start 02/23/19 at 09:00 AUSTEN WONG Feb 23, 2019 17:28
--- NOTE | 2019-02-23 22:22 | DS ---
DATE OF ADMISSION: 02/13/2019 DATE OF DISCHARGE: 02/23/2019 ADDENDUM FINAL DIAGNOSES: 1. Moderate malnutrition status post percutaneous endoscopic gastrostomy tube. 2. Dysphagia after undergoing such and status post EGD without significant abnormality, also status post ENT review on endoscopy without abnormality. 3. 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 4. Thyroid nodule status post ultrasound which recommended yearly serial monitoring. 5. Generalized anxiety disorder. 6. Acute respiratory failure secondary to aspiration pneumonia, much improved. 7. Group B strep urinary tract infection. 8. Chronic rheumatoid arthritis. CONSULTS ON THE CASE: Dr. Lemuel Barger for cardiology, as well as Dr. Kaiser Cao, Dr. Bucky Peraza the gastroenterology, [facility], nurse practitioner, for psychiatry. INTERVENTIONS HOSPITAL COURSE: 1. The patient underwent a soft tissue of neck CT. 2. CT of the chest 3. CT of the abdomen and pelvis. 4. Thyroid ultrasound. 5. Lower extremity venous studies. 6. EGD. 7. Endoscopy through the nose by ENT. 8. Amongst other. HOSPITALIZATION COURSE: Please review discharge summary dictated 02/22/2019. As of today, the patisheridan nt is being transferred to a care home facility. OBJECTIVE: VITAL SIGNS: Temperature 97.5, pulse 92, respirations 20, blood pressure 136/63, saturations 96% on oxygen via nasal cannula at 2 liters a minute. GENERAL: The patient with chronic cognitive deficits, cachectic. CHEST: With diminished breath sounds without wheezing or rhonchi. ABDOMEN: Soft. PEG tube in place without oozing or cellulitis. EXTREMITIES: Moving all extremities. DISPOSITION: shelter facility. DISCHARGE CONDITION: Stable. ACTIVITY: Physical therapy, OT and ST at the care home facility. DISCHARGE MEDICATIONS: For a complete list, please review the patient's chart again. At least a half hour has been spent, discussing with case management, reviewing patient, speaking wit h nursing staff on the day of discharge. Dictated By: JORDYN PAULINO MD BA/NTS Conf#: [id number] DID#: [id number]
== END 2019-02-23 19:10 | DRG 391 ==
LOC: E/R 20:06 → 2NE 23:02
PROVIDERS: ADMIT Internal Medicine; ATTEND Family Medicine
PROC: 0DH63UZ Insertion of Feeding Device into Stomach, Percutaneous Approach (ICD-10-PCS; 2019-02-17)
PROC: 0DJ08ZZ Inspection of Upper Intestinal Tract, Via Natural or Artificial Opening Endoscopic (ICD-10-PCS; principal; 2019-02-17 16:30)
DX: R13.10 Dysphagia, unspecified (principal); E43 Unspecified severe protein-calorie malnutrition; J96.01 Acute respiratory failure with hypoxia; J69.0 Pneumonitis due to inhalation of food and vomit; R64 Cachexia; Z68.1 Body mass index [BMI] 19.9 or less, adult; I45.2 Bifascicular block; E87.0 Hyperosmolality and hypernatremia; N39.0 Urinary tract infection, site not specified; F41.9 Anxiety disorder, unspecified; R62.7 Adult failure to thrive; E87.6 Hypokalemia; M06.9 Rheumatoid arthritis, unspecified; K44.9 Diaphragmatic hernia without obstruction or gangrene; K29.70 Gastritis, unspecified, without bleeding; J34.2 Deviated nasal septum; Z60.2 Problems related to living alone; D44.6 Neoplasm of uncertain behavior of carotid body; I10 Essential (primary) hypertension; E04.2 Nontoxic multinodular goiter; E83.39 Other disorders of phosphorus metabolism; E86.0 Dehydration; B95.1 Streptococcus, group B, as the cause of diseases classified elsewhere
CPT/HCPCS: 36415; 36600; 70491; 71045; 71250; 73100; 74176; 76536; 80048; 80053; 80061; 81003; 82803; 83036; 83690; 83735; 84100; 84439; 84443; 84480; 84484; 85025; 85378; 85610; 87086; 92610; 93005; 93306; 93970; 94640; 94660; 94664; 97110; 97162; J0360; J0692; J1644; J2060; J2270; J2370; J2405; J2765; J3010; J3030; J3480; J7040; J7042; J7050; Q9967